=== PATIENT | male | born 1960 | race African-American/Black ===

== ENCOUNTER 2017-02-12 09:15 | Inpatient (IN) | payer OTHER ==
[2017-02-12 09:38] VITALS: BMI 30.2
--- NOTE | 2017-02-12 11:48 | HP ---
COWS - Scale Resting Pulse: 0= [place] 80 or Below Sweatin= Chills/Flushing Restless Observation: 3= Extraneous Movement Pupil Size: 2= Moderately Dilated Bone or Joint Aches: 4=Acute Joint/Muscle Pain Runny Nose/ Eye Tearin= Nasal Congestion GI Upset > 30mins: 1= Stomach Cramp Tremor Observation: 1= Tremor [place], Not Seen Yawning Observation: 2= >3x During Session Anxiety or Irritability: 2=Irritable/Anxious Goose Flesh Skin: 0=Smooth Skin COWS Score: 17 CIWA Score - CIWA Score Nausea/Vomitin-No Nausea/No Vomiting Muscle Tremors: 4-Moderate,w/Arms Extend Anxiety: 4-Mod. Anxious/Guarded Agitation: 3 Paroxysmal Sweats: 1-Minimal Palms Moist Orientation: 0-Oriented Tacttile Disturbances: 3-Moderate Itch/Numb/Burn Auditory Disturbances: 0-None Visual Disturbances: 0-None Headache: 0-None Present CIWA-Ar Total Score: 15 Admission ROS S - HPI Chief Complaint: DETOX [place] FOR HEROIN AND ALCOHOL DEPENDENCE Allergies/Adverse Reactions: Allergies Allergy/AdvReac Type Severity Reaction Status Date / Time No Known Allergies Allergy Verified 02/12/17 10:28 History of Present Illness: 56 Y/O AA/MALE WITH A HX OF HEROIN AND ALCOHOL DEPENDENCE SEEKING DETOX [place] - Ebola screening Have you traveled outside of the country in the last 21 days: No Have you had contact with anyone from an Ebola affected area: No Have you been sick,other than usual withdrawal symptoms: No Do you have a fever: No - Review of Systems Constitutional: Chills, Night Sweats, Changes in sleep EENT: reports: Blurred Vision, Tearing, Nose Congestion Respiratory: reports: No Symptoms reported Cardiac: reports: Lightheadedness GI: reports: Constipated, Diarrhea, Nausea, Vomiting, Abdominal cramping : reports: Dysuria (SLOW URINE FLOW) Musculoskeletal: reports: Back Pain, Muscle Pain, Other Integumentary: reports: Other (CALLUSED FEET) Neuro: reports: Headache, Numbness, Tingling, Unsteady Gait, Dizziness Endocrine: reports: No Symptoms Reported Hematology: reports: No Symptoms Reported Psychiatric: reports: Orientated x3, Anxious, Depressed Other Systems: Reviewed and Negative Patient History - Patient Medical History Hx Anemia: No Hx Asthma: No Hx Chronic Obstructive Pulmonary Disease (COPD): No Hx Cancer: No Hx Cardiac Disorders: No Hx Congestive Heart Failure: No Hx Hypertension: No Hx Hypercholesterolemia: No Hx Pacemaker: No HX Cerebrovascular Accident: No Hx Seizures: No Hx Dementia: No Hx Diabetes: No Hx Gastrointestinal Disorders: Yes (acid reflux) Hx Liver Disease: No Hx Genitourinary Disorders: No Hx Sexually Transmitted Disorders: No Hx Renal Disease (ESRD): No Hx Thyroid Disease: No Hx Human Immunodeficiency Virus (HIV): No (negative) Hx Hepatitis C: Yes Hx Depression: Yes Hx Suicide Attempt: No Hx Bipolar Disorder: Yes Hx Schizophrenia: No - Patient Surgical History Past Surgical History: No Hx Neurologic Surgery: No Hx Cataract Extraction: No Hx Cardiac Surgery: No Hx Lung Surgery: No Hx Breast Surgery: No Hx Breast Biopsy: No Hx Abdominal Surgery: No Hx Appendectomy: No Hx Cholecystectomy: No Hx Genitourinary Surgery: No Hx Orthopedic Surgery: No Anesthesia Reaction: No - PPD History Previous Implant?: Yes (HX PPD+ WITH TX) Documented Results: Positive w/o proof Implanted On Prior [facility] Admission?: No PPD to be Administered?: No - Reproductive History Patient is a Female of Child Bearing Age (11 -55 yrs old): No (MALE) - Smoking Cessation Smoking history: Current every day smoker Have you smoked in the past 12 months: Yes Aproximately how many cigarettes per day: 20 Hx Chewing Tobacco Use: No Initiated information on smoking cessation: Yes 'Breaking Loose' booklet given: 02/12/17 - Substance & Tx. History Hx Alcohol Use: Yes (BEER/COGNAC) Hx Substance Use: Yes (HEROIN) Substance Use Type: Alcohol, Heroin Hx Substance Use Treatment: Yes - Substances Abused Heroin Route: Inhalation Frequency: Daily Amount used: 10 bags Age of first use: 19 Date of Last Use: 02/12/17 Alcohol-beer/cognac Route: Oral Frequency: 3-6 times per week Amount used: 2-6 pks./1 pt. Age of first use: 13 Date of Last Use: 02/12/17 Family Disease History - Family Disease History Family Disease History: Heart Disease: Father (MASSIVE STROKE-) Admission Physical Exam [facility] - Vital Signs Vital Signs: Vital Signs - 24 hr 02/12/17 09:34 Temperature 96.9 F L Pulse Rate 78 Respiratory 18 Rate Blood Pressure 150/90 - Physical General Appearance: Yes: Moderate Distress, Irritable, Anxious HEENTM: Yes: EOMI, Normocephalic, FRIEDA, Pharynx Normal Respiratory: Yes: Chest Non-Tender, Lungs Clear, Normal Breath Sounds, No Respiratory Distress Neck: Yes: No masses,lesions,Nodules, Supple, Trachea in good position Breast: Yes: Breast Exam Deferred Cardiology: Yes: Regular Rhythm, Regular Rate, S1, S2 Abdominal: Yes: Normal Bowel Sounds, Non Tender, Soft Genitourinary: Yes: Within Normal Limits Back: Yes: Within Normal Limits Extremities: Yes: Normal Range of Motion, Non-Tender Neurological: Yes: compensator worker II-XII NML intact, Fully Oriented, Alert, Motor Strength 5/5 Integumentary: Yes: Dry, Warm Lymphatic: Yes: Within Normal Limits - Diagnostic (1) Nicotine dependence Current Visit: Yes Status: Acute Qualifiers: Nicotine product type: cigarettes Substance use status: in withdrawal Qualified Code(s): F17.213 - Nicotine dependence, cigarettes, with withdrawal (2) Hepatitis C Current Visit: Yes Status: Chronic Qualifiers: Viral hepatitis chronicity: unspecified Hepatic coma status: without hepatic coma Qualified Code(s): B19.20 - Unspecified viral hepatitis C without hepatic coma (3) Opioid dependence with withdrawal Current Visit: Yes Status: Acute (4) Alcohol dependence with uncomplicated withdrawal Current Visit: Yes Status: Acute Cleared for Admission [facility] - Detox or Rehab [facility] Level of Care: Medically Managed Detox Regimen/Protocol: Methadone/Librium [facility] Breath Alcohol Content Breath Alcohol Content: 0.025 Urine Drug Screen - Results Urine Drug Screen Results: THC-Marijuana, OPI-Opiates
[2017-02-12] MEDS ORDERED: diphenhydrAMINE HCL 50 MG CAPSULE PO PRN (12:11)
[2017-02-12] MEDS ORDERED: MENTHOL/PHENOL 1 EACH UD MM PRN (12:11)
[2017-02-12] MEDS ORDERED: ACETAMINOPHEN 325 MG TABLET (FP) PO PRN (12:11)
[2017-02-12] MEDS ORDERED: NICOTINE POLACRILEX 4 MG GUM BUC PRN (12:11)
[2017-02-12] MEDS ORDERED: hydrOXYzine PAMOATE 25 MG CAPSULE (FP) PO PRN (12:11)
[2017-02-12] MEDS ORDERED: LOPERAMIDE HCL 2 MG CAPSULE PO PRN (12:11)
[2017-02-12] MEDS ORDERED: P-EPHED 60MG/TRIPROLIDI 2.5MG TABLET PO PRN (12:11)
[2017-02-12] MEDS ORDERED: diazePAM 5 MG TABLET PO PRN (12:11)
[2017-02-12] MEDS ORDERED: MAGNESIUM HYDROX 2400MG/30ML ORAL SUSPENSION 30 ML CUP PO PRN (12:11)
[2017-02-12] MEDS ORDERED: guaiFENesin/D-METHORPHAN HB 10 ML UNIT-DOSE CUPS PO PRN (12:11)
[2017-02-12] MEDS ORDERED: IBUPROFEN 400 MG TABLET (FP) PO PRN (12:11)
[2017-02-12] MEDS ORDERED: MAGNESIUM CITRATE 300 ML BOTTLE PO PRN (12:11)
[2017-02-12] MEDS ORDERED: MAG HYDROX/AL HYDROX/SIMETH 30 ML UNIT-DOSE CUP PO PRN (12:11)
[2017-02-12] MEDS ORDERED: diazePAM 5 MG TABLET PO ONE (12:40)
[2017-02-12] MEDS ORDERED: METHADONE HCL 10 MG TABLET (FOR DETOX USE ONLY) PO ONE ×2 (12:41→23:00)
[2017-02-12] MEDS: NICOTINE 21 MG/24 HOURS TOPICAL PATCH TD SCH (12:45)
[2017-02-12] MEDS: diazePAM 5 MG TABLET PO SCH ×2 (14:30→22:18)
--- NOTE | 2017-02-12 15:57 | EKG ---
Test Reason : Blood Pressure : / mmHG Vent. Rate : 067 BPM Atrial Rate : 067 BPM P-R Int : 172 ms QRS Dur : 088 ms QT Int : 412 ms P-R-T Axes : 066 031 010 degrees QTc Int : 435 ms NORMAL SINUS RHYTHM POSSIBLE LEFT ATRIAL ENLARGEMENT BORDERLINE ECG NO PREVIOUS ECGS AVAILABLE Confirmed by LIA MATTHEWS, ROSAURA ([id number]) on 02/12/2017 3:57:07 PM Referred By: John Conte Confirmed By:ROSAURA FITZGERALD MD
[2017-02-12 18:39] LABS: URINE APPEARANCE CLEAR; URINE BILIRUBIN NEGATIVE (NEGATIVE); URINE BLOOD NEGATIVE (NEGATIVE); URINE COLOR YELLOW; URINE GLUCOSE (UA) NEGATIVE (NEGATIVE); URINE KETONE NEGATIVE (NEGATIVE); URINE LEUK ESTERASE NEGATIVE (NEGATIVE); URINE NITRITE NEGATIVE (NEGATIVE); URINE PROTEIN NEGATIVE (NEGATIVE); URINE UROBILINOGEN NEGATIVE E.U./dl (0.2-1.0)
[2017-02-12] MEDS ORDERED: THIAMINE HCL 100 MG TABLET (FP) PO SCH (22:00)
[2017-02-13] MEDS: diazePAM 5 MG TABLET PO SCH ×2 (05:54→14:05)
[2017-02-13 09:59] LABS: MCH 28.2 pg (25.7-33.7); MCHC 31.7 g/dl (32.0-35.9); MEAN CELL VOLUME 88.8 fl (80-96); MEAN PLT VOLUME 9.3 fl (7.5-11.1); PLATELET COUNT 202 K/MM3 (134-434); WHITE BLOOD COUNT 5.7 K/mm3 (4.0-10.0)
[2017-02-13] MEDS ORDERED: PRENATAL VITAMINS W/ FOLIC ACID TABLET (FP) PO SCH (10:00)
[2017-02-13] MEDS ORDERED: METHADONE HCL 10 MG TABLET (FOR DETOX USE ONLY) PO SCH (10:00)
[2017-02-13 10:23] LABS: ALBUMIN 3.8 g/dl (3.4-5.0); CALCIUM 9.1 mg/dL (8.5-10.1); CREATININE 1.3 mg/dL (0.7-1.3)
[2017-02-13 10:25] LABS: BILIRUBIN,TOTAL 0.3 mg/dL (0.2-1.0); TOT PROT 7.6 g/dl (6.4-8.2)
[2017-02-13] MEDS: NICOTINE 21 MG/24 HOURS TOPICAL PATCH TD SCH (10:34)
--- NOTE | 2017-02-13 12:51 | CONSULT ---
[facility] Psychiatric Consult - Data Date of interview: 02/13/17 Admission source: [facility] Identifying data: Readmission to [facility] for this 55 y/o AA male seeking detoxification treatment on ,for heroin and alcohol dependence.Patient is single,a father of one,domiciled and evasive about his means of support. Substance Abuse History: - Smoking Cessation. Smoking history: Current every day smoker. Have you smoked in the past 12 months: Yes. Aproximately how many cigarettes per day: 20. Hx Chewing Tobacco Use: No. Initiated information on smoking cessation: Yes. 'Breaking Loose' booklet given: 02/12/17. - Substance & Tx. History. Hx Alcohol Use: Yes (BEER/COGNAC). Hx Substance Use: Yes ( HEROIN). Substance Use Type: Alcohol, Heroin. Hx Substance Use Treatment: Yes. - Substances Abused. Heroin. Route: Inhalation. Frequency: Daily. Amount used: 10 bags. Age of first use: 19. Date of Last Use: 02/12/17. Alcohol-beer/cognac. Route: Oral. Frequency: 3-6 times per week. Amount used : 2-6 pks./1 pt. Age of first use: 13. Date of Last Use: 02/12/17. Confirmed by patient. Medical History: Hepatitis C. Psychiatric History: Remote history of psychiatric hospitalizations for behavioral disturbances (childhood and adolescence).Used to be on thorazine.Diagnosed,years ago,with Bipolar Disorder (self-report).Lost to follow up since adolescence.No OPD care providers.Never resumed psychotropic medications.Mr Hurd denies history of suicide attempts. Physical/Sexual Abuse/Trauma History: Patient denies. Additional Comment: Urine Drug Screen Results: THC-Marijuana, OPI-Opiates.Noted. Mental Status Exam - Mental Status Exam Alert and Oriented to: Time, Place, Person Cognitive Function: Good Patient Appearance: Well Groomed Mood: Hopeful, Euthymic Affect: Appropriate, Normal Range Patient Behavior: Appropriate, Cooperative Speech Pattern: Clear, Appropriate Voice Loudness: Normal Thought Process: Goal Oriented Hallucinations: Denies Suicidal Ideation: Denies Homicidal Ideation: Denies Insight/Judgement: Poor Sleep: Well Appetite: Good Muscle strength/Tone: Normal Gait/Station: Normal Psychiatric Findings - Problem List ([place] 1, 2,3) (1) Alcohol dependence with uncomplicated withdrawal Current Visit: Yes Status: Acute (2) Opioid dependence with withdrawal Current Visit: Yes Status: Acute (3) Nicotine dependence Current Visit: Yes Status: Acute Qualifiers: Nicotine product type: cigarettes Substance use status: in withdrawal Qualified Code(s): F17.213 - Nicotine dependence, cigarettes, with withdrawal (4) Cocaine dependence Current Visit: Yes Status: Acute (5) Drug-induced mood disorder Current Visit: Yes Status: Acute (6) Hepatitis C Current Visit: Yes Status: Chronic Qualifiers: Viral hepatitis chronicity: unspecified Hepatic coma status: without hepatic coma Qualified Code(s): B19.20 - Unspecified viral hepatitis C without hepatic coma - Initial Treatment Plan Initial Treatment Plan: Psychoeducation.Detoxification.Observation.
[2017-02-13 13:11] VITALS: BP 132/74; PULSE 64; TEMP 98.1
[2017-02-13 14:57] LABS: HIV 1 & 2 AB NEGATIVE; HIV 1 AGp24 NEGATIVE
[2017-02-13 15:25] LABS: URINE APPEARANCE CLEAR; URINE BILIRUBIN NEGATIVE (NEGATIVE); URINE BLOOD NEGATIVE (NEGATIVE); URINE COLOR LTYELLOW; URINE GLUCOSE (UA) NEGATIVE (NEGATIVE); URINE KETONE NEGATIVE (NEGATIVE); URINE NITRITE NEGATIVE (NEGATIVE); URINE PROTEIN NEGATIVE (NEGATIVE); URINE UROBILINOGEN NEGATIVE E.U./dl (0.2-1.0)
[2017-02-13 15:30] LABS: URINE LEUK ESTERASE TRACE (NEGATIVE)
[2017-02-13 16:18] LABS: URINE MUCUS RARE; URINE RBC 1 /hpf (0-3); URINE WBC 5 /hpf (3-5)
--- NOTE | 2017-02-13 16:59 | PN ---
[facility] CIWA - CIWA Score Nausea/Vomitin-Mild Nausea/No Vomiting Muscle Tremors: 4-Moderate,w/Arms Extend Anxiety: 4-Mod. Anxious/Guarded Agitation: 3 Paroxysmal Sweats: 3 Orientation: 0-Oriented Tacttile Disturbances: 0-None Auditory Disturbances: 0-None Visual Disturbances: 0-None Headache: 0-None Present CIWA-Ar Total Score: 15 S COWS - Scale Resting Pulse: 0= [place] 80 or Below Sweatin=Flushed/Facial Moisture Restless Observation: 1= Difficult to Sit Still Pupil Size: 0= Normal to Room Light Bone or Joint Aches: 1= Mild Discomfort Runny Nose/ Eye Tearin= Runny Nose/Eyes GI Upset > 30mins: 2= Nausea/Diarrhea Tremor Observation of Outstretched Hands: 2= Slight Tremor Visible Yawning Observation: 1= 1-2x During Session Anxiety or Irritability: 2=Irritable/Anxious Goose Flesh Skin: 0=Smooth Skin COWS Score: 13 [facility] Progress Note (SOAP) Subjective: Anxiety,tremors,sweating,interrupted sleep,muscle aches/spasm,restless,nausea. Objective: 02/13/17 16:58 Vital Signs - 8 hr 02/13/17 02/13/17 09:23 13:11 Temperature 97.3 F L 98.1 F Pulse Rate 57 L 64 Respiratory 18 18 Rate Blood Pressure 128/82 132/74 Laboratory Tests 02/12/17 02/13/17 02/13/17 14:20 06:20 06:20 WBC 5.7 RBC 4.63 Hgb 13.1 Hct 41.1 MCV 88.8 MCHC 31.7 L RDW 14.0 Plt Count 202 MPV 9.3 Sodium 140 Potassium 4.3 Chloride 106 Carbon Dioxide 24 Anion Gap 10 BUN 21 H D Creatinine 1.3 Creat Clearance w eGFR 56.70 Random Glucose 95 Calcium 9.1 Total Bilirubin 0.3 D AST 24 ALT 29 D Alkaline Phosphatase 48 Total Protein 7.6 Albumin 3.8 Urine Color Yellow Urine Appearance Clear Urine pH 5.0 Ur Specific [place] 1.021 Urine Protein Negative Urine Glucose (UA) Negative Urine Ketones Negative Urine Blood Negative Urine Nitrite Negative Urine Bilirubin Negative Urine Urobilinogen Negative Ur Leukocyte Esterase Negative Urine RBC Urine WBC Ur Epithelial Cells Urine Mucus RPR Titer HIV 1&2 Antibody Screen HIV P24 Antigen 02/13/17 02/13/17 02/13/17 06:20 10:30 12:33 WBC RBC Hgb Hct MCV MCHC RDW Plt Count MPV Sodium Potassium Chloride Carbon Dioxide Anion Gap BUN Creatinine Creat Clearance w eGFR Random Glucose Calcium Total Bilirubin AST ALT Alkaline Phosphatase Total Protein Albumin Urine Color Ltyellow Urine Appearance Clear Urine pH 5.0 Ur Specific [place] 1.016 Urine Protein Negative Urine Glucose (UA) Negative Urine Ketones Negative Urine Blood Negative Urine Nitrite Negative Urine Bilirubin Negative Urine Urobilinogen Negative Ur Leukocyte Esterase Trace H Urine RBC 1 Urine WBC 5 Ur Epithelial Cells Rare Urine Mucus Rare RPR Titer Nonreactive HIV 1&2 Antibody Screen Negative HIV P24 Antigen Negative labs noted Assessment: 02/13/17 16:59 Withdrawal sx. Plan: Continue detox
--- NOTE | 2017-02-13 19:10 | PN ---
[facility] Progress Note Note: PATIENT IS THREATENING THE NURSING STAFF,AND ATTEMPT PHYSICALLY,SECURITIES CALLED TO UNIT, ADMINISTRATIVE DISCHARGE,ESCORTED OFF UNIT BY SECURITIES,OPERATIONS STAFF SPECIALIST SECURITY ON CALLED PRESENT IN THE UNIT
--- NOTE | 2017-02-13 19:17 | DS ---
[facility] Detox Discharge Summary Admission Date: 02/12/17 Discharge Date: 02/13/17 - History Present History: Alcohol Dependence, Opioid Dependence Additional Comments: PATIENT IS THREATENING NURSING STAFF,ATTEMPTED PHYSICALLY,SECURITIES CALLED TO UNIT,ADMINISTRATIVE DISCHARGE, ESCORTED OFF UNIT BY SECURITIES,CALCULATION REVIEWER ON DUTY PRESENT IN THE UNIT Pertinent Past History: HEPATITIS C - Physical Exam Results Vital Signs: Vital Signs Temperature 98.1 F 02/13/17 13:11 Pulse Rate 64 02/13/17 13:11 Respiratory Rate 18 02/13/17 13:11 Blood Pressure 132/74 02/13/17 13:11 O2 Sat by Pulse Oximetry (%) Pertinent Admission Physical Exam Findings: WITHDRAWAL SYMPTOM - Medication Discharge Medications: Ambulatory Orders NK [No Known Home Medication] 12/26/15 - Diagnosis (1) Alcohol dependence with uncomplicated withdrawal Status: Acute (2) Drug-induced mood disorder Status: Acute (3) Nicotine dependence Status: Acute Qualifiers: Nicotine product type: cigarettes Substance use status: in withdrawal Qualified Code(s): F17.213 - Nicotine dependence, cigarettes, with withdrawal (4) Opioid dependence with withdrawal Status: Acute (5) Hepatitis C Status: Chronic Qualifiers: Viral hepatitis chronicity: unspecified Hepatic coma status: without hepatic coma Qualified Code(s): B19.20 - Unspecified viral hepatitis C without hepatic coma - AMA Did Patient Leave Against Medical Advice: No
[2017-02-14] MEDS ORDERED: diazePAM 5 MG TABLET PO SCH (10:00)
[2017-02-14] MEDS ORDERED: METHADONE HCL 5 MG TABLET (FOR DETOX USE ONLY) PO SCH (10:00)
[2017-02-16] MEDS ORDERED: METHADONE HCL 10 MG TABLET (FOR DETOX USE ONLY) PO SCH (10:00)
[2017-02-16] MEDS ORDERED: diazePAM 5 MG TABLET PO SCH (10:00)
[2017-02-17] MEDS ORDERED: METHADONE HCL 5 MG TABLET (FOR DETOX USE ONLY) PO SCH (06:00)
== END 2017-02-13 18:57 | disposition home or self-care (01) | DRG 773 ==
LOC: YASAS 09:15 → Y3N 11:18
PROVIDERS: ADMIT Internal Medicine; ATTEND Internal Medicine
PROC: HZ2ZZZZ Detoxification Services for Substance Abuse Treatment (ICD-10-PCS; principal; 2017-02-12)
DX: F11.23 Opioid dependence with withdrawal (principal); F10.230 Alcohol dependence with withdrawal, uncomplicated; F17.210 Nicotine dependence, cigarettes, uncomplicated; F19.24 Other psychoactive substance dependence with psychoactive substance-induced mood disorder; B19.20 Unspecified viral hepatitis C without hepatic coma; K21.9 Gastro-esophageal reflux disease without esophagitis; F91.8 Other conduct disorders
CPT/HCPCS: 36415; 71020-TC; 80053; 81003; 81015; 85027; 86593; 87389; 87522; 93005; 93010

== ENCOUNTER 2018-12-28 08:18 | Inpatient (IN) | payer OTHER ==
[2018-12-28 09:01] VITALS: BMI 30.2
--- NOTE | 2018-12-28 09:16 | HP ---
CIWA Score Nausea/Vomitin-No Nausea/No Vomiting Muscle Tremors: 4-Moderate,w/Arms Extend Anxiety: 1-Mildly Anxious Agitation: 2 Paroxysmal Sweats: 3 Orientation: 1-Uncertain about Date Tacttile Disturbances: 0-None Auditory Disturbances: 0-None Visual Disturbances: 0-None Headache: 1-Very Mild CIWA-Ar Total Score: 12 - Admission Criteria [facility] Guidelines: Admission for Medically Managed Detox: Requires at least one of the followin. CIWA greater than 12 2. Seizures within the past 24 hours 3. Delirium tremens within the past 24 hours 4. Hallucinations within the past 24 hours 5. Acute intervention needed for co occurring medical disorder 6. Acute intervention needed for co occurring psychiatric disorder 7. Severe withdrawal that cannot be handled at a lower level of care (continued vomiting, continued diarrhea, abnormal vital signs) requiring intravenous medication and/or fluids 8. Patient presents the following: CIWA greater than 12 Admission Criteria Met: Admission criteria met Admission ROS S - HPI Chief Complaint: " I am here to get better" Allergies/Adverse Reactions: Allergies Allergy/AdvReac Type Severity Reaction Status Date / Time No Known Allergies Allergy Verified 02/12/17 10:28 History of Present Illness: 58 yr old male with a long hx of alcohol addiction presents for detox. Pt is known to this facility, with a last visit date of January last yr. Pt is in a methadone program - presents his card for [facility] - where he states he was last medicated (80mg)yesterday. Pt states he wants to "come down" on the methadone dose but was educated that he has to return to his program for the step down. Pt verbalized understanding that he will be kept on his 80mg maintenance dose upon verification. Pt denies any medical nor psychiatric hx, and denies being on any medication ( other than the Methadone). Hx of hepatitis C, Bipolar, Depression from history Denies withdrawal seizures nor black outs Denies Hx of SI/HI, and denies same at this visit. Exam Limitations: No Limitations - Ebola screening Have you traveled outside of the country in the last 21 days: No (N) Have you had contact with anyone from an Ebola affected area: No Have you been sick,other than usual withdrawal symptoms: No Do you have a fever: No - Review of Systems Constitutional: Loss of Appetite, Night Sweats, Changes in sleep, Unintentional Wgt. Loss EENT: reports: No Symptoms Reported Respiratory: reports: No Symptoms reported Cardiac: reports: No Symptoms Reported GI: reports: Poor Appetite : reports: Frequency Musculoskeletal: reports: Other (bilateral leg pain, uses a cane to ambulate, which he states "i gave myself to use") Integumentary: reports: No Symptoms Reported Neuro: reports: Unsteady Gait (uses a cane) Endocrine: reports: Intolerance to Cold, Unexplained Weight Loss Hematology: reports: No Symptoms Reported Psychiatric: reports: No Sypmtoms Reported, Orientated x3 Other Systems: Reviewed and Negative Patient History - Patient Medical History Hx Anemia: No Hx Asthma: No Hx Chronic Obstructive Pulmonary Disease (COPD): No Hx Cancer: No Hx Cardiac Disorders: No Hx Congestive Heart Failure: No Hx Hypertension: No Hx Hypercholesterolemia: No Hx Pacemaker: No HX Cerebrovascular Accident: No Hx Seizures: No Hx Dementia: No Hx Diabetes: No Hx Gastrointestinal Disorders: Yes (acid reflux, not on med) Hx Liver Disease: No Hx Genitourinary Disorders: No Hx Sexually Transmitted Disorders: No Hx Renal Disease (ESRD): No Hx Thyroid Disease: No Hx Human Immunodeficiency Virus (HIV): No (negative, declines testing) Hx Hepatitis C: Yes (- states he might have been treated but don't sound certain ) Hx Depression: Yes ( not on meds) Hx Suicide Attempt: No (denies current SI) Hx Bipolar Disorder: Yes Hx Schizophrenia: No - Patient Surgical History Past Surgical History: No Hx Neurologic Surgery: No Hx Cataract Extraction: No Hx Cardiac Surgery: No Hx Lung Surgery: No Hx Breast Surgery: No Hx Breast Biopsy: No Hx Abdominal Surgery: No Hx Appendectomy: No Hx Cholecystectomy: No Hx Genitourinary Surgery: No Hx Section: No Hx Orthopedic Surgery: No Anesthesia Reaction: No - PPD History Previous Implant?: Yes Documented Results: Positive w/o proof Implanted On Prior R Admission?: No PPD to be Administered?: No - Reproductive History Patient is a Female of Child Bearing Age (11 -55 yrs old): No - Smoking Cessation Smoking history: Current every day smoker Have you smoked in the past 12 months: Yes Aproximately how many cigarettes per day: 40 Hx Chewing Tobacco Use: No Initiated information on smoking cessation: Yes 'Breaking Loose' booklet given: 12/28/18 - Substance & Tx. History Hx Alcohol Use: Yes Hx Substance Use: Yes Substance Use Type: Alcohol, Heroin Hx Substance Use Treatment: Yes - Substances Abused Alcohol Route: Oral Frequency: 3-6 times per week Amount used: 2 (24 oz) 6 packs of beerbruce Age of first use: 10 Date of Last Use: 12/27/18 Marijuana/Hashish Route: Inhalation Frequency: Daily Amount used: 2 blunts Age of first use: 10 Date of Last Use: 12/28/18 Family Disease History - Family Disease History Family Disease History: Heart Disease: Father (MASSIVE STROKE-) Admission Physical Exam [facility] - Vital Signs Vital Signs: Vital Signs - 24 hr 12/28/18 08:59 Temperature 99.4 F Pulse Rate 87 Respiratory 20 Rate Blood Pressure 150/84 - Physical General Appearance: Yes: Mild Distress, Anxious HEENTM: Yes: Within Normal Limits Respiratory: Yes: Lungs Clear, No Respiratory Distress, No Accessory Muscle Use Neck: Yes: Within Normal Limits, Trachea in good position Breast: Yes: Breast Exam Deferred Cardiology: Yes: Regular Rate Abdominal: Yes: Normal Bowel Sounds, Soft, Distended Genitourinary: Yes: Frequency, Dribblimg Back: Yes: Normal Inspection Musculoskeletal: Yes: full range of Motion, Other (ambulates with a cane) Extremities: Yes: Normal Capillary Refill, Normal Range of Motion, Other ( Swelling and pain to LLE, ambulatesd with a cane) Neurological: Yes: Fully Oriented, Alert Integumentary: Yes: Within Normal Limits - Diagnostic (1) Alcohol dependence with uncomplicated withdrawal Current Visit: No Status: Acute (2) Opioid dependence on agonist therapy Current Visit: Yes Status: Acute (3) Nicotine dependence Current Visit: No Status: Acute Qualifiers: Nicotine product type: cigarettes Substance use status: in withdrawal Qualified Code(s): F17.213 - Nicotine dependence, cigarettes, with withdrawal (4) History of hepatitis C Current Visit: Yes Status: Acute (5) Cannabis dependence Current Visit: No Status: Chronic Cleared for Admission [facility] - Detox or Rehab [facility] Level of Care: Medically Managed Detox Regimen/Protocol: Librium [facility] Breath Alcohol Content Breath Alcohol Content: 0 Urine Drug Screen - Results Drug Screen Negative: No Urine Drug Screen Results: THC-Marijuana, MTD-Methadone Inpatient Rehab Admission - Rehab Decision to Admit Inpatient rehab admission?: No
[2018-12-28] MEDS ORDERED: MAGNESIUM CITRATE 300 ML BOTTLE PO PRN (09:49)
[2018-12-28] MEDS ORDERED: NICOTINE POLACRILEX 4 MG GUM BC PRN (09:49)
[2018-12-28] MEDS ORDERED: P-EPHED 60MG/TRIPROLIDI 2.5MG TABLET PO PRN (09:49)
[2018-12-28] MEDS ORDERED: MAG HYDROX/AL HYDROX/SIMETH 30 ML UNIT-DOSE CUP PO PRN (09:49)
[2018-12-28] MEDS ORDERED: MENTHOL/PHENOL 1 EACH UD MM PRN (09:49)
[2018-12-28] MEDS ORDERED: ACETAMINOPHEN 325 MG TABLET (FP) PO PRN (09:49)
[2018-12-28] MEDS ORDERED: LOPERAMIDE HCL 2 MG CAPSULE PO PRN (09:49)
[2018-12-28] MEDS ORDERED: chlordiazePOXIDE HCL 25 MG CAPSULE PO PRN (09:49)
[2018-12-28] MEDS ORDERED: MAGNESIUM HYDROX 2400MG/30ML ORAL SUSPENSION 30 ML CUP PO PRN (09:49)
[2018-12-28] MEDS ORDERED: IBUPROFEN 400 MG TABLET (FP) PO PRN (09:49)
[2018-12-28] MEDS ORDERED: guaiFENesin/D-METHORPHAN HB 10 ML UNIT-DOSE CUPS PO PRN (09:49)
[2018-12-28] MEDS: chlordiazePOXIDE HCL 25 MG CAPSULE PO SCH ×3 (12:31→22:07)
[2018-12-28] MEDS: PRENATAL VITAMINS W/ FOLIC ACID TABLET (FP) PO SCH (12:31)
[2018-12-28] MEDS: NICOTINE 21 MG/24 HOURS TOPICAL PATCH TD SCH (12:33)
[2018-12-28] MEDS ORDERED: METHADONE HCL 10 MG TABLET PO ONE (14:54)
--- NOTE | 2018-12-28 14:57 | PN ---
S Progress Note Note: RN unable to verify pt's dose at the [facility],20mg x once only ordered. Attempts will be made again tomorrow to oon5deg pt's dose.
[2018-12-28] MEDS: THIAMINE HCL 100 MG TABLET (FP) PO SCH (22:07)
[2018-12-28] MEDS: hydrOXYzine PAMOATE 25 MG CAPSULE (FP) PO PRN (22:08)
[2018-12-29] MEDS: chlordiazePOXIDE HCL 25 MG CAPSULE PO SCH ×4 (05:46→22:26)
[2018-12-29] MEDS: METHADONE HCL 40 MG DISPERSABLE TABLET PO SCH (08:58)
--- NOTE | 2018-12-29 09:40 | PN ---
S CIWA - CIWA Score Nausea/Vomitin-Mild Nausea/No Vomiting Muscle Tremors: 3 Anxiety: 2 Agitation: 2 Paroxysmal Sweats: 1-Minimal Palms Moist Orientation: 1-Uncertain about Date Tacttile Disturbances: 0-None Auditory Disturbances: 0-None Visual Disturbances: 0-None Headache: 2-Mild CIWA-Ar Total Score: 12 [facility] Progress Note (SOAP) Subjective: methadone verified may give as prescribed tremor sweating anxiety otherwise doing ok social with peers in day room Objective: 12/29/18 09:40 Vital Signs Temperature 98.7 F 12/29/18 09:20 Pulse Rate 60 12/29/18 09:20 Respiratory Rate 18 12/29/18 09:20 Blood Pressure 125/70 12/29/18 09:20 O2 Sat by Pulse Oximetry (%) 12/29/18 09:40 lab pending Assessment: 12/29/18 09:41 withdrawal sx Plan: continue detox
[2018-12-29 09:56] LABS: HEMATOCRIT 35.4 % (35.4-49); HEMOGLOBIN 11.5 GM/dL (11.7-16.9); MCH 28.4 pg (25.7-33.7); MCHC 32.4 g/dl (32.0-35.9); MEAN CELL VOLUME 87.5 fl (80-96); MEAN PLT VOLUME 8.6 fl (7.5-11.1); PLATELET COUNT 179 K/MM3 (134-434); RBC 4.04 M/mm3 (4.00-5.60); WHITE BLOOD COUNT 4.5 K/mm3 (4.0-10.0)
[2018-12-29 10:19] LABS: ALK PHOS 48 U/L (45-117); ANION GAP 6 MMOL/L (8-16); BILIRUBIN,TOTAL 0.4 mg/dL (0.2-1); BLOOD UREA NITROGEN 16 mg/dL (7-18); CALCIUM 8.7 mg/dL (8.5-10.1); CHLORIDE 108 mmol/L (98-107); CO2 28 mmol/L (21-32); CREATININE 0.9 mg/dL (0.55-1.3); GLUCOSE,RANDOM 82 mg/dL (74-106); POTASSIUM 3.9 mmol/L (3.5-5.1); SGOT/AST 17 U/L (15-37); SGPT/ALT 19 U/L (13-61); SODIUM 142 mmol/L (136-145); TOT PROT 6.2 g/dl (6.4-8.2)
[2018-12-29] MEDS: NICOTINE 21 MG/24 HOURS TOPICAL PATCH TD SCH (10:22)
[2018-12-29] MEDS: PRENATAL VITAMINS W/ FOLIC ACID TABLET (FP) PO SCH (10:22)
[2018-12-29] MEDS: THIAMINE HCL 100 MG TABLET (FP) PO SCH (22:25)
[2018-12-29] MEDS: MELATONIN 5 MG TABLETS PO PRN (22:33)
[2018-12-30] MEDS: chlordiazePOXIDE HCL 25 MG CAPSULE PO SCH (05:19)
[2018-12-30] MEDS: METHADONE HCL 40 MG DISPERSABLE TABLET PO SCH (05:20)
--- NOTE | 2018-12-30 10:09 | PN ---
[facility] CIWA - CIWA Score Nausea/Vomitin-No Nausea/No Vomiting Muscle Tremors: 3 Anxiety: 1-Mildly Anxious Agitation: 2 Paroxysmal Sweats: 1-Minimal Palms Moist Orientation: 1-Uncertain about Date Tacttile Disturbances: 0-None Auditory Disturbances: 0-None Visual Disturbances: 0-None Headache: 2-Mild CIWA-Ar Total Score: 10 S Progress Note (SOAP) Subjective: tremor sweating anxiety reported ambulate with cane x 1 years due to both ankles swell x 3 years with neuropathy Objective: 12/30/18 10:06 Vital Signs Temperature 100.4 F H 12/30/18 09:19 Pulse Rate 70 12/30/18 09:19 Respiratory Rate 20 12/30/18 09:19 Blood Pressure 121/81 12/30/18 09:19 O2 Sat by Pulse Oximetry (%) Laboratory Last Values WBC 4.5 K/mm3 (4.0-10.0) 12/29/18 07:50 RBC 4.04 M/mm3 (4.00-5.60) 12/29/18 07:50 Hgb 11.5 GM/dL (11.7-16.9) L 12/29/18 07:50 Hct 35.4 % (35.4-49) 12/29/18 07:50 MCV 87.5 fl (80-96) 12/29/18 07:50 MCH 28.4 pg (25.7-33.7) 12/29/18 07:50 MCHC 32.4 g/dl (32.0-35.9) 12/29/18 07:50 RDW 15.0 % (11.9-15.9) 12/29/18 07:50 Plt Count 179 K/MM3 (134-434) 12/29/18 07:50 MPV 8.6 fl (7.5-11.1) 12/29/18 07:50 Sodium 142 mmol/L (136-145) 12/29/18 07:50 Potassium 3.9 mmol/L (3.5-5.1) 12/29/18 07:50 Chloride 108 mmol/L (98-107) H 12/29/18 07:50 Carbon Dioxide 28 mmol/L (21-32) 12/29/18 07:50 Anion Gap 6 MMOL/L (8-16) L 12/29/18 07:50 BUN 16 mg/dL (7-18) 12/29/18 07:50 Creatinine 0.9 mg/dL (0.55-1.3) 12/29/18 07:50 Creat Clearance w eGFR > 60 (>60) 12/29/18 07:50 Random Glucose 82 mg/dL (74-106) 12/29/18 07:50 Calcium 8.7 mg/dL (8.5-10.1) 12/29/18 07:50 Total Bilirubin 0.4 mg/dL (0.2-1) 12/29/18 07:50 AST 17 U/L (15-37) 12/29/18 07:50 ALT 19 U/L (13-61) 12/29/18 07:50 Alkaline Phosphatase 48 U/L (45-117) 12/29/18 07:50 Total Protein 6.2 g/dl (6.4-8.2) L 12/29/18 07:50 Albumin 3.0 g/dl (3.4-5.0) L 12/29/18 07:50 RPR Titer Nonreactive (NONREACTIVE) 12/29/18 07:50 lab noted Assessment: 12/30/18 10:06 withdrawal sx neuropathy Plan: continue detox ambulate with cane
[2018-12-30] MEDS: chlordiazePOXIDE 5 MG CAPSULE PO SCH ×3 (10:26→22:21)
[2018-12-30] MEDS: NICOTINE 21 MG/24 HOURS TOPICAL PATCH TD SCH (10:26)
[2018-12-30] MEDS: PRENATAL VITAMINS W/ FOLIC ACID TABLET (FP) PO SCH (10:26)
[2018-12-30] MEDS: THIAMINE HCL 100 MG TABLET (FP) PO SCH (22:21)
[2018-12-30] MEDS: MELATONIN 5 MG TABLETS PO PRN (22:21)
[2018-12-31] MEDS: hydrOXYzine PAMOATE 25 MG CAPSULE (FP) PO PRN (02:18)
[2018-12-31] MEDS: chlordiazePOXIDE 5 MG CAPSULE PO SCH (05:20)
[2018-12-31] MEDS: METHADONE HCL 40 MG DISPERSABLE TABLET PO SCH (05:20)
[2018-12-31] MEDS: PRENATAL VITAMINS W/ FOLIC ACID TABLET (FP) PO SCH (10:31)
[2018-12-31] MEDS: chlordiazePOXIDE HCL 10 MG CAPSULE PO SCH ×3 (10:32→22:08)
[2018-12-31] MEDS: NICOTINE 21 MG/24 HOURS TOPICAL PATCH TD SCH (10:33)
--- NOTE | 2018-12-31 16:27 | PN ---
[facility] Progress Note (SOAP) Subjective: Body Aches, Sweating. Objective: PATIENT A & O X 3. IN NO ACUTE DISTRESS. 12/31/18 16:26 Vital Signs Temperature 98.4 F 12/31/18 09:51 Pulse Rate 60 12/31/18 09:51 Respiratory Rate 20 12/31/18 09:51 Blood Pressure 117/70 12/31/18 09:51 O2 Sat by Pulse Oximetry (%) Laboratory Tests 12/29/18 12/29/18 12/29/18 07:50 07:50 07:50 WBC 4.5 RBC 4.04 Hgb 11.5 L Hct 35.4 MCV 87.5 MCH 28.4 MCHC 32.4 RDW 15.0 Plt Count 179 MPV 8.6 Sodium 142 Potassium 3.9 Chloride 108 H Carbon Dioxide 28 Anion Gap 6 L BUN 16 Creatinine 0.9 Creat Clearance w eGFR > 60 Random Glucose 82 Calcium 8.7 Total Bilirubin 0.4 AST 17 ALT 19 Alkaline Phosphatase 48 Total Protein 6.2 L Albumin 3.0 L RPR Titer Nonreactive LABS NOTED. Assessment: 12/31/18 16:26 WITHDRAWAL SYMPTOMS. Plan: CONTINUED DETOX. INCREASE DAILY PO FLUID INTAKE. TOPICAL RY-[place] FOR LOWER BACK PAIN. PATIENT SCHEDULED FOR D/C TOMORROW.
[2018-12-31] MEDS: THIAMINE HCL 100 MG TABLET (FP) PO SCH (22:08)
[2018-12-31] MEDS: MELATONIN 5 MG TABLETS PO PRN (22:08)
[2019-01-01] MEDS: METHYL SALICYLATE/MENTHOL OINT 30 GM TUBE TP SCH ×2 (00:03→10:05)
[2019-01-01] MEDS: chlordiazePOXIDE HCL 10 MG CAPSULE PO SCH (05:09)
[2019-01-01] MEDS: METHADONE HCL 40 MG DISPERSABLE TABLET PO SCH (05:09)
--- NOTE | 2019-01-01 09:40 | DS ---
[facility] Detox Discharge Summary Admission Date: 12/28/18 Discharge Date: 01/01/19 - History Present History: Alcohol Dependence Additional Comments: 58 years old male admitted on 12/28/18 for alcohol withdrawal stabilization completed detox regimen tolerate well aftercare [facility] Physical Exam Results Vital Signs: Vital Signs Temperature 99 F 01/01/19 09:30 Pulse Rate 67 01/01/19 09:30 Respiratory Rate 18 01/01/19 09:30 Blood Pressure 129/77 01/01/19 09:30 O2 Sat by Pulse Oximetry (%) Pertinent Admission Physical Exam Findings: alcohol withdrawal sx Laboratory Last Values WBC 4.5 K/mm3 (4.0-10.0) 12/29/18 07:50 RBC 4.04 M/mm3 (4.00-5.60) 12/29/18 07:50 Hgb 11.5 GM/dL (11.7-16.9) L 12/29/18 07:50 Hct 35.4 % (35.4-49) 12/29/18 07:50 MCV 87.5 fl (80-96) 12/29/18 07:50 MCH 28.4 pg (25.7-33.7) 12/29/18 07:50 MCHC 32.4 g/dl (32.0-35.9) 12/29/18 07:50 RDW 15.0 % (11.9-15.9) 12/29/18 07:50 Plt Count 179 K/MM3 (134-434) 12/29/18 07:50 MPV 8.6 fl (7.5-11.1) 12/29/18 07:50 Sodium 142 mmol/L (136-145) 12/29/18 07:50 Potassium 3.9 mmol/L (3.5-5.1) 12/29/18 07:50 Chloride 108 mmol/L (98-107) H 12/29/18 07:50 Carbon Dioxide 28 mmol/L (21-32) 12/29/18 07:50 Anion Gap 6 MMOL/L (8-16) L 12/29/18 07:50 BUN 16 mg/dL (7-18) 12/29/18 07:50 Creatinine 0.9 mg/dL (0.55-1.3) 12/29/18 07:50 Creat Clearance w eGFR > 60 (>60) 12/29/18 07:50 Random Glucose 82 mg/dL (74-106) 12/29/18 07:50 Calcium 8.7 mg/dL (8.5-10.1) 12/29/18 07:50 Total Bilirubin 0.4 mg/dL (0.2-1) 12/29/18 07:50 AST 17 U/L (15-37) 12/29/18 07:50 ALT 19 U/L (13-61) 12/29/18 07:50 Alkaline Phosphatase 48 U/L (45-117) 12/29/18 07:50 Total Protein 6.2 g/dl (6.4-8.2) L 12/29/18 07:50 Albumin 3.0 g/dl (3.4-5.0) L 12/29/18 07:50 RPR Titer Nonreactive (NONREACTIVE) 12/29/18 07:50 lab noted - Treatment Hospital Course: Detox Protocol Followed, Detoxed Safely, Responded well, Discharged Condition Good, Rehab Referral Accepted Patient has Accepted a Rehab Referral to: [facility] - Medication Discharge Medications: Ambulatory Orders Methadone [Dolophine -] 80 mg PO DAILY 12/28/18 - Diagnosis (1) Alcohol dependence with uncomplicated withdrawal Current Visit: Yes Status: Acute (2) Nicotine dependence Current Visit: Yes Status: Acute Qualifiers: Nicotine product type: cigarettes Substance use status: in withdrawal Qualified Code(s): F17.213 - Nicotine dependence, cigarettes, with withdrawal (3) Opioid dependence on agonist therapy Current Visit: Yes Status: Chronic (4) Drug-induced mood disorder Current Visit: Yes Status: Suspected (5) Hepatitis C Current Visit: Yes Status: Chronic Qualifiers: Viral hepatitis chronicity: chronic Hepatic coma status: without hepatic coma Qualified Code(s): B18.2 - Chronic viral hepatitis C - AMA Did Patient Leave Against Medical Advice: No
[2019-01-01] MEDS: PRENATAL VITAMINS W/ FOLIC ACID TABLET (FP) PO SCH (10:06)
[2019-01-01] MEDS: NICOTINE 21 MG/24 HOURS TOPICAL PATCH TD SCH (10:06)
[2019-01-01 13:39] VITALS: BP 128/71; PULSE 65; TEMP 97.8
== END 2019-01-01 15:35 | disposition home or self-care (01) | DRG 773 ==
LOC: YASAS 08:18 → Y3N 10:26
PROVIDERS: ADMIT Surgery; ATTEND Surgery
PROC: HZ2ZZZZ Detoxification Services for Substance Abuse Treatment (ICD-10-PCS; principal; 2018-12-28)
DX: F10.230 Alcohol dependence with withdrawal, uncomplicated (principal); F11.20 Opioid dependence, uncomplicated; F12.20 Cannabis dependence, uncomplicated; F17.213 Nicotine dependence, cigarettes, with withdrawal; F19.24 Other psychoactive substance dependence with psychoactive substance-induced mood disorder; B18.2 Chronic viral hepatitis C; G62.9 Polyneuropathy, unspecified; R76.11 Nonspecific reaction to tuberculin skin test without active tuberculosis
CPT/HCPCS: 36415; 71046-TC-FY; 80053; 85027; 86593

== ENCOUNTER 2019-01-02 12:01 | Inpatient (IN) | payer OTHER ==
--- NOTE | 2019-01-01 11:52 | HP ---
[facility] Rehab Assess/Revision - Admission History Admitted to Rehab from: [facility] Date of Admission to Rehab: 01/01/19 - Findings Detox History & Physical reviewed: Yes Concur with findings: Yes Comments/Additional Findings: transferred from detox to rehab admission as per protocol Inpatient Rehab Admission - Rehab Decision to Admit Inpatient rehab admission?: Yes - Initial Determination Are CD services needed?: Yes Free of communicable disease: Yes Not in need of hospitalization: Yes - Rehab Admission Criteria Previous failed treatment: Yes Poor recovery environment: Yes Comorbidities: Yes Lacks judgement: No Patient is meeting Inpatient Rehab admission criteria:: Yes
[~2019-01-02 12:01] MED LIST: ACETAMINOPHEN 325 MG TABLET (FP) PO PRN; IBUPROFEN 400 MG TABLET (FP) PO PRN; LOPERAMIDE HCL 2 MG CAPSULE PO PRN; MAG HYDROX/AL HYDROX/SIMETH 30 ML UNIT-DOSE CUP PO PRN; MAGNESIUM CITRATE 300 ML BOTTLE PO PRN; MAGNESIUM HYDROX 2400MG/30ML ORAL SUSPENSION 30 ML CUP PO PRN; MELATONIN 5 MG TABLETS PO PRN; MENTHOL/PHENOL 1 EACH UD MM PRN; METHADONE HCL 40 MG DISPERSABLE TABLET PO SCH; NICOTINE 14 MG/24 HOURS TOPICAL PATCH TD PRN; NICOTINE POLACRILEX 2 MG GUM BUC PRN; P-EPHED 60MG/TRIPROLIDI 2.5MG TABLET PO PRN; PRENATAL VITAMINS W/ FOLIC ACID TABLET (FP) PO SCH; THIAMINE HCL 100 MG TABLET (FP) PO SCH; guaiFENesin/D-METHORPHAN HB 10 ML UNIT-DOSE CUPS PO PRN
[2019-01-02 13:00] VITALS: BMI 31.0
--- NOTE | 2019-01-02 13:52 | HP ---
CIWA Score - Admission Criteria [facility] Guidelines: Admission for Medically Managed Detox: Requires at least one of the followin. CIWA greater than 12 2. Seizures within the past 24 hours 3. Delirium tremens within the past 24 hours 4. Hallucinations within the past 24 hours 5. Acute intervention needed for co occurring medical disorder 6. Acute intervention needed for co occurring psychiatric disorder 7. Severe withdrawal that cannot be handled at a lower level of care (continued vomiting, continued diarrhea, abnormal vital signs) requiring intravenous medication and/or fluids 8. Admission ROS S - HPI Allergies/Adverse Reactions: Allergies Allergy/AdvReac Type Severity Reaction Status Date / Time No Known Allergies Allergy Verified 01/02/19 15:20 History of Present Illness: pt here for rehab admission , was transferred from detox to rehab yesterday however due to bed availability pt was d/c home and returned today . On MMTP 80 mg today , since 18 mo ago . PMHX : reports swelling in mariaa LE L> R w / pain x 3 years , has been using a cane for ambulation . PSHx : denies PSych : depression , denies SI / HI . meds : denies Exam Limitations: No Limitations - Ebola screening Have you traveled outside of the country in the last 21 days: No Have you had contact with anyone from an Ebola affected area: No Have you been sick,other than usual withdrawal symptoms: No - Review of Systems Constitutional: No Symptoms Reported EENT: reports: Other (glasses - reading , denies dysphagia) Respiratory: reports: No Symptoms reported Cardiac: reports: No Symptoms Reported GI: reports: No Symptoms Reported : reports: Other (hesitancy) Musculoskeletal: reports: Joint Swelling (mariaa ankles) Integumentary: reports: Erythema (mariaa legs) Neuro: reports: No Symptoms reported Endocrine: reports: No Symptoms Reported Psychiatric: reports: Orientated x3 Patient History - Patient Medical History Hx Anemia: No Hx Asthma: No Hx Chronic Obstructive Pulmonary Disease (COPD): No Hx Cancer: No Hx Cardiac Disorders: No Hx Congestive Heart Failure: No Hx Hypertension: No Hx Hypercholesterolemia: No Hx Pacemaker: No HX Cerebrovascular Accident: No Hx Seizures: No Hx Dementia: No Hx Diabetes: No Hx Gastrointestinal Disorders: Yes (acid reflux, not on med) Hx Liver Disease: No Hx Genitourinary Disorders: No Hx Sexually Transmitted Disorders: No Hx Renal Disease (ESRD): No Hx Thyroid Disease: No Hx Human Immunodeficiency Virus (HIV): No (negative, declines testing) Hx Hepatitis C: Yes (- states he might have been treated but don't sound certain ) Hx Depression: Yes ( not on meds) Hx Suicide Attempt: No (denies current SI) Hx Bipolar Disorder: Yes Hx Schizophrenia: No - Patient Surgical History Past Surgical History: No Hx Neurologic Surgery: No Hx Cataract Extraction: No Hx Cardiac Surgery: No Hx Lung Surgery: No Hx Breast Surgery: No Hx Breast Biopsy: No Hx Abdominal Surgery: No Hx Appendectomy: No Hx Cholecystectomy: No Hx Genitourinary Surgery: No Hx Section: No Hx Orthopedic Surgery: No Anesthesia Reaction: No - Smoking Cessation Smoking history: Current every day smoker Have you smoked in the past 12 months: Yes Aproximately how many cigarettes per day: 40 Hx Chewing Tobacco Use: No Initiated information on smoking cessation: No Family Disease History - Family Disease History Family Disease History: Heart Disease: Father (MASSIVE STROKE-) Admission Physical Exam S - Vital Signs Vital Signs: Vital Signs - 24 hr 01/02/19 12:59 Temperature 99.1 F Pulse Rate 77 Respiratory 19 Rate Blood Pressure 136/77 - Physical General Appearance: Yes: Moderate Distress, Other (limping left leg) HEENTM: Yes: EOMI, Hearing grossly Normal, Normocephalic, Normal Voice Respiratory: Yes: Chest Non-Tender, Lungs Clear, Normal Breath Sounds Neck: Yes: No masses,lesions,Nodules, Trachea in good position Cardiology: Yes: Regular Rhythm, Regular Rate, S1, S2 Abdominal: Yes: Normal Bowel Sounds, Non Tender, Soft Genitourinary: Yes: Within Normal Limits Back: Yes: Normal Inspection Musculoskeletal: Yes: Joint Stiffness, Joint swelling (left ankle >> right , + tenderness to palpation medial > lateral malleolus , decreased ROM) Extremities: Yes: Pedal Edema (left > R posterior tibial), Swelling (mariaa ankles R >> LEft), Calf Tenderness (right), Erythema Neurological: Yes: Motor Strength 5/5, Normal Mood/Affect Integumentary: Yes: Erythema, Pitting Edema (r ankle > left) - Addiitonal Findings: pt to go to ER for clearance , mariaa LE Doppler r/o DVT and ankle XR , d/w ER attending Dr Vides , nursing aware , pt is agreeable w/ POC , will return for rehab when above studies completed. addendum 6;16 pm returned from ER xr negative for frx - Diagnostic (1) Alcohol dependence Current Visit: Yes Status: Chronic Qualifiers: Substance use status: in remission Qualified Code(s): F10.21 - Alcohol dependence, in remission (2) Cocaine dependence Current Visit: No Status: Chronic Qualifiers: Substance use status: in remission Qualified Code(s): F14.21 - Cocaine dependence, in remission (3) Nicotine dependence Current Visit: No Status: Chronic Qualifiers: Nicotine product type: cigarettes Substance use status: in withdrawal Qualified Code(s): F17.213 - Nicotine dependence, cigarettes, with withdrawal (4) Cannabis dependence Current Visit: No Status: Chronic (5) Opioid dependence on agonist therapy Current Visit: No Status: Chronic (6) Edema, lower extremity Current Visit: Yes Status: Acute [facility] Breath Alcohol Content Breath Alcohol Content: 0 Urine Drug Screen - Results Drug Screen Negative: No Urine Drug Screen Results: THC-Marijuana, BZO-Benzodiazepines, MTD-Methadone Inpatient Rehab Admission - Rehab Decision to Admit Inpatient rehab admission?: Yes - Initial Determination Are CD services needed?: Yes Free of communicable disease: Yes Not in need of hospitalization: No - Rehab Admission Criteria Previous failed treatment: Yes Poor recovery environment: Yes Comorbidities: No Lacks judgement: Yes Patient is meeting Inpatient Rehab admission criteria:: Yes (upon return from ER w/ clearance for LE )
[2019-01-02] MEDS ORDERED: MAGNESIUM HYDROX 2400MG/30ML ORAL SUSPENSION 30 ML CUP PO PRN (22:37)
[2019-01-02] MEDS ORDERED: IBUPROFEN 400 MG TABLET (FP) PO PRN (22:37)
[2019-01-02] MEDS ORDERED: MAG HYDROX/AL HYDROX/SIMETH 30 ML UNIT-DOSE CUP PO PRN (22:37)
[2019-01-02] MEDS ORDERED: ACETAMINOPHEN 325 MG TABLET (FP) PO PRN (22:37)
[2019-01-02] MEDS ORDERED: LOPERAMIDE HCL 2 MG CAPSULE PO PRN (22:37)
[2019-01-02] MEDS ORDERED: MENTHOL/PHENOL 1 EACH UD MM PRN (22:37)
[2019-01-02] MEDS ORDERED: P-EPHED 60MG/TRIPROLIDI 2.5MG TABLET PO PRN (22:37)
[2019-01-02] MEDS ORDERED: guaiFENesin/D-METHORPHAN HB 10 ML UNIT-DOSE CUPS PO PRN (22:37)
[2019-01-02] MEDS ORDERED: MAGNESIUM CITRATE 300 ML BOTTLE PO PRN (22:37)
[2019-01-03] MEDS: METHADONE HCL 40 MG DISPERSABLE TABLET PO SCH (07:45)
[2019-01-03] MEDS: NICOTINE 14 MG/24 HOURS TOPICAL PATCH TD SCH (10:22)
[2019-01-03] MEDS: PRENATAL VITAMINS W/ FOLIC ACID TABLET (FP) PO SCH (10:22)
[2019-01-03] MEDS: THIAMINE HCL 100 MG TABLET (FP) PO SCH (21:50)
[2019-01-04] MEDS: METHADONE HCL 40 MG DISPERSABLE TABLET PO SCH (06:21)
[2019-01-04] MEDS: PRENATAL VITAMINS W/ FOLIC ACID TABLET (FP) PO SCH (10:15)
[2019-01-04] MEDS: NICOTINE 14 MG/24 HOURS TOPICAL PATCH TD SCH (10:15)
[2019-01-04] MEDS: THIAMINE HCL 100 MG TABLET (FP) PO SCH (21:57)
[2019-01-05] MEDS: MELATONIN 5 MG TABLETS PO PRN ×2 (01:18→22:09)
[2019-01-05] MEDS: METHADONE HCL 40 MG DISPERSABLE TABLET PO SCH (06:52)
[2019-01-05] MEDS: NICOTINE 14 MG/24 HOURS TOPICAL PATCH TD SCH (10:01)
[2019-01-05] MEDS: NICOTINE POLACRILEX 2 MG GUM BC PRN (10:02)
[2019-01-05] MEDS: PRENATAL VITAMINS W/ FOLIC ACID TABLET (FP) PO SCH (10:02)
[2019-01-05] MEDS: THIAMINE HCL 100 MG TABLET (FP) PO SCH (22:09)
[2019-01-06] MEDS: METHADONE HCL 40 MG DISPERSABLE TABLET PO SCH (06:15)
[2019-01-06] MEDS: NICOTINE POLACRILEX 2 MG GUM BC PRN ×2 (10:24→12:18)
[2019-01-06] MEDS: NICOTINE 14 MG/24 HOURS TOPICAL PATCH TD SCH (10:24)
[2019-01-06] MEDS: PRENATAL VITAMINS W/ FOLIC ACID TABLET (FP) PO SCH (10:24)
[2019-01-06] MEDS: THIAMINE HCL 100 MG TABLET (FP) PO SCH (23:24)
[2019-01-07] MEDS: MELATONIN 5 MG TABLETS PO PRN (01:54)
[2019-01-07] MEDS: METHADONE HCL 40 MG DISPERSABLE TABLET PO SCH (06:34)
[2019-01-07] MEDS: NICOTINE POLACRILEX 2 MG GUM BC PRN ×2 (06:36→10:29)
--- NOTE | 2019-01-07 10:17 | PN ---
S Progress Note Note: PT C/O PAIN AND LUMP ON BUTTOCK AREA. REPORTS HX OF COCCYX CYST 10 YEARS AGO AND THINKS IT'S REOCCURRING. Vital Signs - 24 hr 01/07/19 01/07/19 01/07/19 00:30 03:30 07:00 Temperature 97.6 F Pulse Rate 62 Respiratory 18 18 20 Rate Blood Pressure 141/73 EXAM:RED AND SWOLLEN AREA ON INNER ASPECT OF LEFT BUTTOCK. NO DRAINAGE NOTED. A:BOIL PLAN;WARM COMPRESS APPLY BID AND KEEP AREA CLEAN. KEFLEX 500 MG PO Q6H X 7 DAYS BACITRACIN OINTMENT APPLY BID
[2019-01-07] MEDS: NICOTINE 14 MG/24 HOURS TOPICAL PATCH TD SCH (10:29)
[2019-01-07] MEDS: PRENATAL VITAMINS W/ FOLIC ACID TABLET (FP) PO SCH (10:29)
[2019-01-07 11:16] LABS: URINE APPEARANCE SLCLOUDY; URINE BILIRUBIN NEGATIVE (<2.0 mg/dL); URINE COLOR YELLOW; URINE GLUCOSE (UA) NEGATIVE (NEGATIVE); URINE KETONE NEGATIVE (NEGATIVE); URINE LEUK ESTERASE NEGATIVE (NEGATIVE); URINE NITRITE NEGATIVE (NEGATIVE); URINE PROTEIN NEGATIVE (NEGATIVE); URINE UROBILINOGEN NEGATIVE mg/dL (0.2-1.0)
[2019-01-07] MEDS: BACITRACIN 0.9 GM PACKET TP SCH ×2 (15:29→22:34)
[2019-01-07] MEDS: CEPHALEXIN MONOHYDRATE 500 MG CAPSULE (UD) PO SCH ×3 (15:29→23:48)
[2019-01-07] MEDS: THIAMINE HCL 100 MG TABLET (FP) PO SCH (22:34)
[2019-01-08] MEDS: METHADONE HCL 40 MG DISPERSABLE TABLET PO SCH (06:05)
[2019-01-08] MEDS: CEPHALEXIN MONOHYDRATE 500 MG CAPSULE (UD) PO SCH ×4 (06:06→23:57)
[2019-01-08] MEDS: BACITRACIN 0.9 GM PACKET TP SCH ×2 (10:24→21:44)
[2019-01-08] MEDS: PRENATAL VITAMINS W/ FOLIC ACID TABLET (FP) PO SCH (10:25)
[2019-01-08] MEDS: NICOTINE POLACRILEX 2 MG GUM BC PRN ×2 (10:26→14:33)
[2019-01-08] MEDS: NICOTINE 14 MG/24 HOURS TOPICAL PATCH TD SCH (10:26)
[2019-01-08] MEDS: THIAMINE HCL 100 MG TABLET (FP) PO SCH (21:44)
[2019-01-09] MEDS: MELATONIN 5 MG TABLETS PO PRN ×2 (00:39→21:29)
[2019-01-09] MEDS: CEPHALEXIN MONOHYDRATE 500 MG CAPSULE (UD) PO SCH ×4 (06:19→23:03)
[2019-01-09] MEDS: METHADONE HCL 40 MG DISPERSABLE TABLET PO SCH (06:20)
[2019-01-09] MEDS ORDERED: METHADONE HCL 40 MG DISPERSABLE TABLET PO SCH (06:31)
--- NOTE | 2019-01-09 09:46 | PN ---
S Progress Note Note: PT REPORTS CYST ON BUTTOCK NOW DRAINING SINCE YESTERDAY. Vital Signs - 24 hr 01/09/19 01/09/19 03:30 07:03 Temperature 98.5 F Pulse Rate 57 L Respiratory 18 18 Rate Blood Pressure 125/66 PLAN:CLEAN AREA WITH NORMAL SALINE DIRECTED. APPLY BACITRACIN OINTMENT AND COVER WITH STERILE GAUZE DRESSING DIRECTED. CONTINUE ANTIBIOTICS THERAPY DIRECTED.
[2019-01-09] MEDS: PRENATAL VITAMINS W/ FOLIC ACID TABLET (FP) PO SCH (10:09)
[2019-01-09] MEDS: BACITRACIN 0.9 GM PACKET TP SCH ×2 (10:09→21:28)
[2019-01-09] MEDS: NICOTINE POLACRILEX 2 MG GUM BC PRN ×2 (10:10→12:53)
[2019-01-09] MEDS: NICOTINE 14 MG/24 HOURS TOPICAL PATCH TD SCH (10:11)
[2019-01-09] MEDS: THIAMINE HCL 100 MG TABLET (FP) PO SCH (21:29)
[2019-01-10] MEDS ORDERED: hydrOXYzine PAMOATE 25 MG CAPSULE (FP) PO ONE (01:17)
[2019-01-10] MEDS ORDERED: METHADONE HCL 40 MG DISPERSABLE TABLET PO SCH (06:00)
[2019-01-10] MEDS: CEPHALEXIN MONOHYDRATE 500 MG CAPSULE (UD) PO SCH ×4 (06:15→23:36)
[2019-01-10] MEDS: BACITRACIN 0.9 GM PACKET TP SCH ×2 (09:53→21:59)
[2019-01-10] MEDS: PRENATAL VITAMINS W/ FOLIC ACID TABLET (FP) PO SCH (09:54)
[2019-01-10] MEDS: NICOTINE POLACRILEX 2 MG GUM BC PRN ×2 (09:54→12:02)
[2019-01-10] MEDS: NICOTINE 14 MG/24 HOURS TOPICAL PATCH TD SCH (09:54)
[2019-01-10] MEDS: THIAMINE HCL 100 MG TABLET (FP) PO SCH (21:59)
[2019-01-11] MEDS: MELATONIN 5 MG TABLETS PO PRN ×2 (00:08→21:38)
[2019-01-11] MEDS: CEPHALEXIN MONOHYDRATE 500 MG CAPSULE (UD) PO SCH ×4 (06:07→23:37)
[2019-01-11] MEDS: METHADONE HCL 40 MG DISPERSABLE TABLET PO SCH (07:18)
[2019-01-11] MEDS: BACITRACIN 0.9 GM PACKET TP SCH ×2 (10:09→21:38)
[2019-01-11] MEDS: PRENATAL VITAMINS W/ FOLIC ACID TABLET (FP) PO SCH (10:09)
[2019-01-11] MEDS: NICOTINE 14 MG/24 HOURS TOPICAL PATCH TD SCH (10:09)
[2019-01-11] MEDS: NICOTINE POLACRILEX 2 MG GUM BC PRN ×2 (10:10→12:21)
[2019-01-11] MEDS: THIAMINE HCL 100 MG TABLET (FP) PO SCH (21:38)
[2019-01-12] MEDS: CEPHALEXIN MONOHYDRATE 500 MG CAPSULE (UD) PO SCH ×4 (06:04→23:11)
[2019-01-12] MEDS: METHADONE HCL 40 MG DISPERSABLE TABLET PO SCH (06:04)
[2019-01-12] MEDS: BACITRACIN 0.9 GM PACKET TP SCH ×2 (10:18→21:47)
[2019-01-12] MEDS: PRENATAL VITAMINS W/ FOLIC ACID TABLET (FP) PO SCH (10:18)
[2019-01-12] MEDS: NICOTINE 14 MG/24 HOURS TOPICAL PATCH TD SCH (10:18)
[2019-01-12] MEDS: NICOTINE POLACRILEX 2 MG GUM BC PRN ×3 (10:20→17:17)
[2019-01-12] MEDS: THIAMINE HCL 100 MG TABLET (FP) PO SCH (21:47)
[2019-01-12] MEDS: MELATONIN 5 MG TABLETS PO PRN (23:11)
[2019-01-13] MEDS: METHADONE HCL 40 MG DISPERSABLE TABLET PO SCH (06:12)
[2019-01-13] MEDS: CEPHALEXIN MONOHYDRATE 500 MG CAPSULE (UD) PO SCH ×2 (06:13→12:53)
[2019-01-13] MEDS: NICOTINE POLACRILEX 2 MG GUM BC PRN ×4 (06:15→21:34)
[2019-01-13] MEDS: PRENATAL VITAMINS W/ FOLIC ACID TABLET (FP) PO SCH (10:24)
[2019-01-13] MEDS: BACITRACIN 0.9 GM PACKET TP SCH ×2 (10:24→21:35)
[2019-01-13] MEDS: NICOTINE 14 MG/24 HOURS TOPICAL PATCH TD SCH (10:24)
[2019-01-13] MEDS: THIAMINE HCL 100 MG TABLET (FP) PO SCH (21:34)
[2019-01-13] MEDS: MELATONIN 5 MG TABLETS PO PRN (23:44)
[2019-01-14] MEDS: METHADONE HCL 40 MG DISPERSABLE TABLET PO SCH (06:06)
[2019-01-14] MEDS: NICOTINE POLACRILEX 2 MG GUM BC PRN ×2 (06:13→10:25)
[2019-01-14] MEDS: BACITRACIN 0.9 GM PACKET TP SCH ×2 (10:25→21:35)
[2019-01-14] MEDS: NICOTINE 14 MG/24 HOURS TOPICAL PATCH TD SCH (10:25)
[2019-01-14] MEDS: PRENATAL VITAMINS W/ FOLIC ACID TABLET (FP) PO SCH (10:25)
[2019-01-14] MEDS: THIAMINE HCL 100 MG TABLET (FP) PO SCH (21:35)
[2019-01-14] MEDS: MELATONIN 5 MG TABLETS PO PRN (21:35)
[2019-01-15] MEDS: METHADONE HCL 40 MG DISPERSABLE TABLET PO SCH (06:20)
[2019-01-15] MEDS: NICOTINE POLACRILEX 2 MG GUM BC PRN (06:22)
[2019-01-15 07:14] VITALS: BP 131/64; PULSE 56; TEMP 98.6
[2019-01-15] MEDS: BACITRACIN 0.9 GM PACKET TP SCH (09:23)
[2019-01-15] MEDS: PRENATAL VITAMINS W/ FOLIC ACID TABLET (FP) PO SCH (09:23)
[2019-01-15] MEDS: NICOTINE 14 MG/24 HOURS TOPICAL PATCH TD SCH (09:23)
--- NOTE | 2019-01-15 11:13 | PN ---
[facility] Progress Note Note: PT COMPLETED REHAB AND DISCHARGE TODAY. PT MET WITH HIS COUNSELOR LELE MERIDA AND PT HAS BEEN REFERRED TO [facility] FOR CD AFTERCARE.PT ON [facility] AND REPORTS HE HAS PRIMARY CARE AT [facility](SAYS "HIS NAME IS ON MY INSURANCE CARD" IN [place]). COURTESY RX OF NARCAN BELOW ELECTRONICALLY SENT TO [facility] FOR TOURISM RADIO PRESENTER. ALERT O X 3. DENIES S/H/I. Home Medications Medication Instructions Recorded Methadone [Dolophine -] 80 mg PO DAILY 12/28/18 Naloxone HCl [Narcan] 4 mg NS ONCE #1 spray 01/15/19 Vital Signs - 24 hr 01/15/19 01/15/19 01/15/19 00:30 03:30 07:13 Temperature 98.6 F Pulse Rate 56 L Respiratory 18 18 18 Rate Blood Pressure 131/64 Laboratory Tests 01/06/19 13:20 Urine Color Yellow Urine Appearance Slcloudy Urine pH 5.0 Ur Specific [place] 1.019 Urine Protein Negative Urine Glucose (UA) Negative Urine Ketones Negative Urine Blood Negative Urine Nitrite Negative Urine Bilirubin Negative Urine Urobilinogen Negative Ur Leukocyte Esterase Negative NAD MEDICALLY STABLE PLAN:FOLLOW UP WITH CD AFTERCARE AT [facility] ON 01/20/19 @10:00 FOLLOW UP WITH PCP AT [facility] WITHIN 1-2 WEEKS AFTER DISCHARGE.
== END 2019-01-15 09:55 | disposition home or self-care (01) | DRG 772 ==
LOC: YASAS 12:01 → Y5N 18:12
PROVIDERS: ADMIT Neuromusculoskeletal Medicine & OMM; ATTEND Neuromusculoskeletal Medicine & OMM
PROC: HZ42ZZZ Group Counseling for Substance Abuse Treatment, Cognitive-Behavioral (ICD-10-PCS; principal; 2019-01-02)
DX: F10.20 Alcohol dependence, uncomplicated (principal); F11.20 Opioid dependence, uncomplicated; F14.20 Cocaine dependence, uncomplicated; F12.20 Cannabis dependence, uncomplicated; F17.210 Nicotine dependence, cigarettes, uncomplicated; B18.2 Chronic viral hepatitis C; R60.0 Localized edema; L02.31 Cutaneous abscess of buttock
CPT/HCPCS: 81003

== ENCOUNTER 2019-01-02 15:07 | Emergency (ER) | payer OTHER ==
[2019-01-02 15:24] VITALS: BP 111/75; PULSE 65; TEMP 98.3; BMI 31.4
--- NOTE | 2019-01-02 15:25 | PDOC ---
Rapid Medical Evaluation Time Seen by Provider: 01/02/19 15:23 Medical Evaluation: Allergies Allergy/AdvReac Type Severity Reaction Status Date / Time No Known Allergies Allergy Verified 01/02/19 15:20 01/02/19 15:23 I performed a brief in-person evaluation of this patient. Chief complaint: left ankle pain. Pertinent physical exam findings: bilat 1+ LE edema (chronic per patient) L>R, left medial malleolar tenderness, mild calf tenderness. I have ordered the following: ankle foot/xray, u/s to r/o DVT Patient to proceed to the ED for further evaluation. Discharge Disposition - Diagnosis Left leg swelling - Referrals - Patient Instructions - Post Discharge Activity
--- NOTE | 2019-01-02 16:56 | PDOC ---
History of Present Illness - General Chief Complaint: Edema Stated Complaint: Edema Time Seen by Provider: 01/02/19 15:23 History Source: Patient Exam Limitations: No Limitations - History of Present Illness Initial Comments: 01/02/19 16:57 Patient was initially seen and examined. He states that he is at [address] however during admission process is found to have a left ankle edema +1. He was sent up here for further evaluation prior to admission. Past medical history is substance and alcohol abuse Past History - Past Medical History Allergies/Adverse Reactions: Allergies Allergy/AdvReac Type Severity Reaction Status Date / Time No Known Allergies Allergy Verified 01/02/19 15:20 Home Medications: Ambulatory Orders Methadone [Dolophine -] 80 mg PO DAILY 12/28/18 Anemia: No Asthma: No Cancer: No Cardiac Disorders: No CVA: No COPD: No CHF: No Dementia: No Diabetes: No GI Disorders: Yes (acid reflux, not on med) Disorders: No HTN: No Hypercholesterolemia: No Kidney Stones: No Liver Disease: No Seizures: No Thyroid Disease: No - Surgical History Abdominal Surgery: No Appendectomy: No Cardiac Surgery: No Cholecystectomy: No Lung Surgery: No Neurologic Surgery: No Orthopedic Surgery: No - Reproductive History Testicular Surgery: No - Suicide/Smoking/Psychosocial Hx Smoking History: Never smoked Have you smoked in the past 12 months: Yes Number of Cigarettes Smoked Daily: 40 'Breaking Loose' booklet given: 12/28/18 Hx Alcohol Use: Yes Drug/Substance Use Hx: Yes Substance Use Type: Alcohol, Heroin Hx Substance Use Treatment: Yes Review of Systems - Review of Systems Able to Perform ROS?: Yes Comments:: 01/02/19 16:58 General statement: Ankle swelling Hematology: neg history of bleeding/blood thinners Skin: Neg for lesions, rash, bruising. HEENT: Neg symptoms Respiratory: Neg SOB or difficulty in breathing Cardiac: Neg chest pain GI: Neg pain, n/v : Neg problems on voiding MS: Neg for joint pain/stiffness, no edema Neuro: Neg for LOC, weakness, Endocrine: Neg for excess thirst/hunger, cold/heat intolerance, excess sweating Allergies: Neg for allergies *Physical Exam - Vital Signs Last Vital Signs Temp Pulse Resp BP Pulse Ox 98.3 F 65 16 111/75 99 01/02/19 15:21 01/02/19 15:21 01/02/19 15:21 01/02/19 15:21 01/02/19 15:21 - Physical Exam Comments: 01/02/19 16:58 General Appearance: This well appearing 58-year-old gentleman V/S: hemodynamically stable, afebrile Skin: WNL of pt's skin color, no signs of pallor, mottling, cyanosis Head:symmetrical Eyes: EOM's intact, PERRLA Ears: denies pain Nose: patent Throat: lips, teeth, gums, tongue, buccal mucos pink and moist Lungs: Chest symmetry equal. Cap refill <3 seconds. Lung sounds clear Cardiac: PMI at R 4MCL space, pos S1 and S2, regular rate. Abdomen: Soft, round, nontender : Not observed Muscularskeletal: Gait steady, ambulated in to ER, +PMS with trace +1 edema Neuro: AAOx3, cognitively intact, speech clear and appropriate. Moderate Sedation - Procedure Monitoring Vital Signs: Procedure Monitoring Vital Signs Temperature 98.3 F 01/02/19 15:21 Pulse Rate 65 01/02/19 15:21 Respiratory Rate 16 01/02/19 15:21 Blood Pressure 111/75 01/02/19 15:21 O2 Sat by Pulse Oximetry (%) 99 01/02/19 15:21 Medical Decision Making - Medical Decision Making 01/02/19 16:58 Patient initially seen and examined. Patient underwent a duplex of the extremity and is negative for any DVT. He underwent an x-ray to rule out any fracture. He has no fracture. He does ambulate with a cane and this is chronic edema. At this time the patient is going to be discharged back to [facility] [place] *DC/Admit/Observation/Transfer Diagnosis at time of Disposition: Left leg swelling - Discharge Dispostion Disposition: TRANSFER ACUTE CARE/OTHER HOSP Condition at time of disposition: Stable Decision to Admit order: No - Referrals - Patient Instructions Additional Instructions: Discharge instructions 1. Please follow up with your primary physician within the next few days and explain that you have been seen here in the Emergency Room. 2. If you experience any worsening of symptoms, please return to the ER 3. Rest him a keep her leg elevated, you may want to consider using compression stockings, follow up with your primary physician is U may need some water pills if you start see excess of swelling. - Post Discharge Activity
== END 2019-01-02 17:55 | disposition short-term general hospital (02) ==
LOC: JER 15:07
DX: R60.0 Localized edema (principal); F19.20 Other psychoactive substance dependence, uncomplicated; Z87.19 Personal history of other diseases of the digestive system
CPT/HCPCS: 73610-TC-LT-FY; 73630-TC-LT; 93971-TC; 99281-25

== ENCOUNTER 2021-06-13 07:03 | Inpatient (IN) | payer OTHER ==
[2021-06-13] MEDS ORDERED: MAG HYDROX/AL HYDROX/SIMETH 30 ML UNIT-DOSE CUP PO ONE (07:58)
[2021-06-13] MEDS ORDERED: FAMOTIDINE 20 MG/50 ML IVPB 20 MG/50 ML MG IVPB ONE ×2 (07:58→08:15)
[2021-06-13] MEDS ORDERED: SUCRALFATE 1 GM TABLET (FP) PO ONE (07:58)
[2021-06-13] MEDS ORDERED: ACETAMINOPHEN 1000 MG/100 ML VIAL (NON FORMULARY) IVPB ONE (07:58)
[2021-06-13] MEDS ORDERED: ONDANSETRON 4 MG/2 ML VIAL IVPUSH ONE (07:58)
[2021-06-13] MEDS ORDERED: SODIUM CHLORIDE 1,000 ML IV STA (08:04)
[2021-06-13] MEDS ORDERED: MAG HYDROX/AL HYDROX/SIMETH 30 ML UNIT-DOSE CUP ONE (08:14)
[2021-06-13] MEDS ORDERED: SUCRALFATE 1 GM TABLET (FP) ONE (08:14)
[2021-06-13] MEDS ORDERED: ONDANSETRON 4 MG/2 ML VIAL ONE (08:14)
[2021-06-13] MEDS ORDERED: ACETAMINOPHEN INJECTION 100 ML IVPB ONE (08:14)
[2021-06-13 08:17] LABS: BASO % 0.5 % (0-2.0); EOS % 0.2 % (0-4.5); HEMATOCRIT 43.5 % (35.4-49); HEMOGLOBIN 14.3 GM/dL (11.7-16.9); LYMPH % 7.6 % (8-40); MCH 28.8 pg (25.7-33.7); MCHC 32.8 g/dl (32.0-35.9); MEAN CELL VOLUME 87.8 fl (80-96); MEAN PLT VOLUME 7.9 fl (7.5-11.1); MONO % 6.2 % (3.8-10.2); NEUT % 85.5 % (42.8-82.8); PLATELET COUNT 176 10^3/uL (134-434); RBC 4.95 M/mm3 (4.00-5.60); RDW 14.2 % (11.9-15.9); WHITE BLOOD COUNT 8.9 K/mm3 (4.0-10.0)
[2021-06-13 08:18] LABS: PH,URINE 8.5 (5.0-8.0); URINE APPEARANCE CLEAR; URINE BILIRUBIN NEGATIVE (NEGATIVE); URINE COLOR YELLOW; URINE GLUCOSE (UA) NEGATIVE (NEGATIVE); URINE KETONE NEGATIVE (NEGATIVE); URINE LEUK ESTERASE NEGATIVE (NEGATIVE); URINE NITRITE NEGATIVE (NEGATIVE); URINE PROTEIN NEGATIVE (NEGATIVE); URINE UROBILINOGEN 0.2 mg/dL (0.2-1.0)
[2021-06-13 08:34] LABS: CHLORIDE 105 mmol/L (98-107); SODIUM 138 mmol/L (136-145)
[2021-06-13 08:36] LABS: CALCIUM 9.3 mg/dL (8.5-10.1)
[2021-06-13 08:37] LABS: ALBUMIN 3.7 g/dl (3.4-5.0); ANION GAP 7 MMOL/L (8-16); BLOOD UREA NITROGEN 15.7 mg/dL (7-18); CO2 26 mmol/L (21-32); GLUCOSE,RANDOM 134 mg/dL (74-106); LIPASE 83 U/L (73-393)
[2021-06-13 08:40] LABS: SGOT/AST 27 U/L (15-37); SGPT/ALT 27 U/L (13-61)
[2021-06-13 08:41] LABS: BILIRUBIN,TOTAL 0.4 mg/dL (0.2-1)
[2021-06-13 08:42] LABS: TOT PROT 7.9 g/dl (6.4-8.2)
[2021-06-13 08:43] LABS: ALK PHOS 59 U/L (45-117)
[2021-06-13 08:44] LABS: INR 0.97 (0.83-1.09); PROTHROMBIN TIME (PATIENT) 11.8 SEC (9.7-13.0)
[2021-06-13 08:47] LABS: ACTIVATED PTT 31.4 SECONDS (25.2-36.5)
[2021-06-13] MEDS ORDERED: morphine CARPU-JECT 4 MG/1 ML DISP.SYRIN IVPUSH ONE (13:51)
[2021-06-13] MEDS ORDERED: ALBUTEROL SO4 2.5/IPRATROPIUM 0.5 INH SOL 3 ML VIAL.NEB. NEB ONE (14:01)
[2021-06-13] MEDS ORDERED: morphine SULFATE 4 MG/ML VIAL ONE (14:02)
[2021-06-13] MEDS: ALBUTEROL SO4 2.5/IPRATROPIUM 0.5 INH SOL 3 ML VIAL.NEB. NEB SCH ×2 (14:13→14:14)
[2021-06-14] MEDS: LACTATED RINGERS SOLUTION 1,000 ML/1,000 ML INFUS.BAG IV SCH ×2 (03:06→18:41)
[2021-06-14 03:11] VITALS: BMI 29.3
[2021-06-14 08:22] LABS: BASO % 0.4 % (0-2.0); HEMOGLOBIN 15.7 GM/dL (11.7-16.9); LYMPH % 7.9 % (8-40); MCH 28.6 pg (25.7-33.7); MCHC 32.8 g/dl (32.0-35.9); MEAN CELL VOLUME 87.2 fl (80-96); MEAN PLT VOLUME 7.9 fl (7.5-11.1); MONO % 7.1 % (3.8-10.2); NEUT % 84.6 % (42.8-82.8); PLATELET COUNT 193 10^3/uL (134-434); RBC 5.51 M/mm3 (4.00-5.60); RDW 14.5 % (11.9-15.9); WHITE BLOOD COUNT 11.4 K/mm3 (4.0-10.0)
[2021-06-14 08:42] LABS: CALCIUM 9.5 mg/dL (8.5-10.1)
[2021-06-14 08:43] LABS: ALBUMIN 3.8 g/dl (3.4-5.0); BLOOD UREA NITROGEN 12.7 mg/dL (7-18); MAGNESIUM 2.1 mg/dL (1.8-2.4)
[2021-06-14 08:46] LABS: CREATININE 0.9 mg/dL (0.55-1.3); PHOSPHOROUS 2.8 mg/dL (2.5-4.9)
[2021-06-14 08:47] LABS: BILIRUBIN,TOTAL 0.6 mg/dL (0.2-1); TOT PROT 8.5 g/dl (6.4-8.2)
[2021-06-14] MEDS: FOLIC ACID 1 MG TABLET (FP) PO SCH (09:23)
[2021-06-14] MEDS: MULTIVITAMINS (DAILY MVI) TABLET (FP) PO SCH (09:23)
[2021-06-14] MEDS: THIAMINE HCL 100 MG TABLET (FP) PO SCH (09:23)
[2021-06-14] MEDS ORDERED: methaDONE HCL 10 MG TABLET ONE (10:37)
[2021-06-14] MEDS ORDERED: methaDONE HCL 40 MG DISPERSABLE TABLET ONE (10:37)
[2021-06-14] MEDS: methaDONE 80 MG, methaDONE 20 MG PO SCH (10:41)
[2021-06-14] MEDS ORDERED: methaDONE HCL 40 MG DISPERSABLE TABLET PO SCH (10:45)
[2021-06-14] MEDS: ACETAMINOPHEN 325 MG TABLET (FP) PO PRN (18:40)
[2021-06-14] MEDS: ENOXAPARIN NA (PORCINE) 40 MG/0.4 ML DISP.SYRIN SQ SCH (18:40)
[2021-06-15] MEDS ORDERED: methaDONE HCL 10 MG TABLET ONE (05:58)
[2021-06-15] MEDS ORDERED: methaDONE HCL 40 MG DISPERSABLE TABLET ONE (05:59)
[2021-06-15] MEDS: methaDONE 80 MG, methaDONE 20 MG PO SCH (06:02)
[2021-06-15] MEDS: ACETAMINOPHEN 325 MG TABLET (FP) PO PRN (06:33)
[2021-06-15 07:55] LABS: BASO % 0.3 % (0-2.0); EOS % 0.1 % (0-4.5); HEMATOCRIT 47.5 % (35.4-49); HEMOGLOBIN 15.7 GM/dL (11.7-16.9); LYMPH % 15.6 % (8-40); MCH 29.4 pg (25.7-33.7); MEAN PLT VOLUME 8.5 fl (7.5-11.1); MONO % 13.2 % (3.8-10.2); NEUT % 70.8 % (42.8-82.8); PLATELET COUNT 199 10^3/uL (134-434); RBC 5.34 M/mm3 (4.00-5.60); RDW 14.2 % (11.9-15.9); WHITE BLOOD COUNT 7.7 K/mm3 (4.0-10.0)
[2021-06-15 08:06] LABS: ALBUMIN 3.4 g/dl (3.4-5.0); CALCIUM 8.7 mg/dL (8.5-10.1)
[2021-06-15 08:07] LABS: BLOOD UREA NITROGEN 16.8 mg/dL (7-18)
[2021-06-15 08:11] LABS: PHOSPHOROUS 2.7 mg/dL (2.5-4.9); TOT PROT 7.4 g/dl (6.4-8.2)
[2021-06-15 08:12] LABS: BILIRUBIN,TOTAL 0.8 mg/dL (0.2-1)
[2021-06-15] MEDS: ENOXAPARIN NA (PORCINE) 40 MG/0.4 ML DISP.SYRIN SQ SCH (10:09)
[2021-06-15] MEDS: THIAMINE HCL 100 MG TABLET (FP) PO SCH (10:10)
[2021-06-15] MEDS: MULTIVITAMINS (DAILY MVI) TABLET (FP) PO SCH (10:10)
[2021-06-15] MEDS: FOLIC ACID 1 MG TABLET (FP) PO SCH (10:10)
[2021-06-15 10:26] VITALS: BP 131/71; PULSE 87; TEMP 98.8
== END 2021-06-15 15:46 | disposition home or self-care (01) ==
LOC: JER 07:03 → JERBED 13:25 → J7W 06-14 02:44
PROVIDERS: ATTEND Internal Medicine
DX: K80.80 Other cholelithiasis without obstruction (principal); F10.10 Alcohol abuse, uncomplicated; F11.20 Opioid dependence, uncomplicated
CPT/HCPCS: 36415; 71045-TC-FY; 74177-TC; 76705-TC; 78226-TC; 80053; 80061; 81003; 83690; 83721; 83735; 84100; 84484; 85025; 85610; 85730; 86850; 86900; 86901; 87086; 93005; 93010; 97116-GP; 97161-GP; 99285-25; A9537; C9803; J0131; Q9967; U0003; U0005

== ENCOUNTER 2021-08-01 22:23 | Emergency (ER) | payer OTHER ==
[2021-08-01 22:37] VITALS: BMI 29.5
[2021-08-01] MEDS ORDERED: SODIUM CHLORIDE 1,000 ML IV STA (23:20)
[2021-08-02 00:58] LABS: BASO % 0.1 % (0-2.0); HEMATOCRIT 49.2 % (35.4-49); HEMOGLOBIN 16.1 GM/dL (11.7-16.9); LYMPH % 5.2 % (8-40); MCH 28.6 pg (25.7-33.7); MCHC 32.8 g/dl (32.0-35.9); MEAN CELL VOLUME 87.3 fl (80-96); MEAN PLT VOLUME 8.3 fl (7.5-11.1); MONO % 8.1 % (3.8-10.2); NEUT % 86.6 % (42.8-82.8); PLATELET COUNT 222 10^3/uL (134-434); RBC 5.64 M/mm3 (4.00-5.60); RDW 14.2 % (11.9-15.9); WHITE BLOOD COUNT 15.4 K/mm3 (4.0-10.0)
[2021-08-02 01:30] LABS: CALCIUM 9.5 mg/dL (8.5-10.1)
[2021-08-02 01:32] LABS: ALBUMIN 3.8 g/dl (3.4-5.0); BLOOD UREA NITROGEN 13.9 mg/dL (7-18)
[2021-08-02 01:36] LABS: BILIRUBIN,TOTAL 0.6 mg/dL (0.2-1); TOT PROT 9.1 g/dl (6.4-8.2)
[2021-08-02 02:34] LABS: COCAINE, UR NEGATIVE (NEGATIVE)
[2021-08-02 02:36] LABS: PHENCYCLIDINE,URINE NEGATIVE (NEGATIVE)
[2021-08-02 02:38] LABS: METHADONE, UR POSITIVE (NEGATIVE); OPIATES, URI POSITIVE (NEGATIVE); URINE AMPHETAMINES NEGATIVE (NEGATIVE); URINE BARBITURATES NEGATIVE (NEGATIVE); URINE BENZODIAZEPINES NEGATIVE (NEGATIVE)
[2021-08-02] MEDS ORDERED: ONDANSETRON 4 MG/2 ML VIAL IVPUSH ONE (03:02)
[2021-08-02] MEDS ORDERED: FAMOTIDINE 20 MG/50 ML IVPB 20 MG/50 ML MG IVPB ONE ×2 (03:02→03:20)
[2021-08-02] MEDS ORDERED: ONDANSETRON 4 MG/2 ML VIAL ONE (03:20)
[2021-08-02 03:31] LABS: EPI CELLS 9 /uL (0-25.1); HYALINE CASTS 3 /uL (0-3.1); PH,URINE 5.5 (5.0-8.0); URINE APPEARANCE CLEAR; URINE BACTERIA 9 /uL (0-1359); URINE BILIRUBIN NEGATIVE (NEGATIVE); URINE COLOR YELLOW; URINE GLUCOSE (UA) NEGATIVE (NEGATIVE); URINE KETONE 2+ (NEGATIVE); URINE LEUK ESTERASE NEGATIVE (NEGATIVE); URINE NITRITE NEGATIVE (NEGATIVE); URINE PROTEIN 3+ (NEGATIVE); URINE RBC 11 /uL (0-23.9); URINE WBC 18 /uL (0-25.8)
[2021-08-02 06:42] VITALS: BP 171/94; PULSE 60; TEMP 99.1
== END 2021-08-02 07:00 | disposition home or self-care (01) ==
LOC: JER 22:23
PROC: 3E033GC Introduction of Other Therapeutic Substance into Peripheral Vein, Percutaneous Approach (ICD-10-PCS; principal; 2021-08-01)
PROC: 3E033GC Introduction of Other Therapeutic Substance into Peripheral Vein, Percutaneous Approach (ICD-10-PCS; 2021-08-01)
PROC: 3E0337Z Introduction of Electrolytic and Water Balance Substance into Peripheral Vein, Percutaneous Approach (ICD-10-PCS; 2021-08-01)
DX: R10.9 Unspecified abdominal pain (principal)
CPT/HCPCS: 36415; 71046-TC-FY; 80053; 80307; 81003; 83690; 84484; 85025; 87086; 93005; 93010; 99285-25

== ENCOUNTER 2022-01-23 18:52 | Inpatient (IN) | payer OTHER ==
[2022-01-23] MEDS ORDERED: ACETAMINOPHEN 1000 MG/100 ML BAG IVPB ONE (20:30)
[2022-01-23] MEDS ORDERED: ACETAMINOPHEN INJECTION 100 ML IVPB ONE (20:40)
[2022-01-23] MEDS ORDERED: SODIUM CHLORIDE 1,000 ML IV STA (20:49)
[2022-01-23 21:40] LABS: BASO % 0.2 % (0-2.0); EOS % 0.1 % (0-4.5); HEMOGLOBIN 14.4 GM/dL (11.7-16.9); LYMPH % 8.4 % (8-40); MCH 29.2 pg (25.7-33.7); MCHC 33.6 g/dl (32.0-35.9); MEAN PLT VOLUME 8.5 fl (7.5-11.1); MONO % 5.2 % (3.8-10.2); NEUT % 86.1 % (42.8-82.8); PLATELET COUNT 184 10^3/uL (134-434); RBC 4.94 M/mm3 (4.00-5.60); WHITE BLOOD COUNT 5.9 K/mm3 (4.0-10.0)
[2022-01-23 21:53] LABS: CALCIUM 9.3 mg/dL (8.5-10.1)
[2022-01-23 21:54] LABS: ALBUMIN 3.6 g/dl (3.4-5.0); BLOOD UREA NITROGEN 12.2 mg/dL (7-18); MAGNESIUM 1.7 mg/dL (1.8-2.4)
[2022-01-23 21:57] LABS: PHOSPHOROUS 1.8 mg/dL (2.5-4.9)
[2022-01-23 21:58] LABS: BILIRUBIN,TOTAL 0.4 mg/dL (0.2-1); TOT PROT 7.9 g/dl (6.4-8.2)
[2022-01-23 23:20] LABS: PH,URINE >= 9.0 (5.0-8.0); URINE APPEARANCE CLEAR; URINE BILIRUBIN NEGATIVE (NEGATIVE); URINE COLOR YELLOW; URINE GLUCOSE (UA) NEGATIVE (NEGATIVE); URINE KETONE 1+ (NEGATIVE); URINE LEUK ESTERASE NEGATIVE (NEGATIVE); URINE NITRITE NEGATIVE (NEGATIVE); URINE PROTEIN NEGATIVE (NEGATIVE); URINE UROBILINOGEN 0.2 mg/dL (0.2-1.0)
[2022-01-24] MEDS ORDERED: LORazepam 2 MG/ML SDV VIAL IVPUSH ONE (00:20)
[2022-01-24] MEDS ORDERED: KETOROLAC TROMETHAMINE 15 MG/ML VIAL IVPUSH ONE (03:29)
[2022-01-24] MEDS ORDERED: ONDANSETRON 4 MG/2 ML VIAL IVPUSH PRN ×2 (03:30→11:16)
[2022-01-24] MEDS: LACTATED RINGERS SOLUTION 1,000 ML IV SCH (03:40)
[2022-01-24 05:01] VITALS: BMI 26.4
[2022-01-24] MEDS ORDERED: MAGNESIUM SULF 50% (8.12 MEQ/2 ML-1 GM VIAL) IVPB ONE ×2 (05:08→08:02)
[2022-01-24] MEDS ORDERED: SODIUM PHOSPHATE - 30 MM in DEXTROSE 5%-WATER - 500 ML IVPB ONE (06:30)
[2022-01-24 09:03] LABS: BASO % 0.3 % (0-2.0); HEMATOCRIT 46.3 % (35.4-49); HEMOGLOBIN 15.6 GM/dL (11.7-16.9); LYMPH % 7.3 % (8-40); MCH 29.3 pg (25.7-33.7); MCHC 33.6 g/dl (32.0-35.9); MEAN PLT VOLUME 8.2 fl (7.5-11.1); MONO % 4.6 % (3.8-10.2); NEUT % 87.8 % (42.8-82.8); PLATELET COUNT 194 10^3/uL (134-434); RBC 5.32 M/mm3 (4.00-5.60); WHITE BLOOD COUNT 6.5 K/mm3 (4.0-10.0)
[2022-01-24] MEDS ORDERED: MAG HYDROX/AL HYDROX/SIMETH 30 ML UNIT-DOSE CUP PO PRN (09:11)
[2022-01-24 09:19] LABS: ALBUMIN 3.8 g/dl (3.4-5.0)
[2022-01-24 09:20] LABS: BLOOD UREA NITROGEN 10.5 mg/dL (7-18); CALCIUM 9.4 mg/dL (8.5-10.1)
[2022-01-24 09:24] LABS: CREATININE 0.9 mg/dL (0.55-1.3); PHOSPHOROUS 3.2 mg/dL (2.5-4.9); TOT PROT 8.3 g/dl (6.4-8.2)
[2022-01-24 09:25] LABS: BILIRUBIN,TOTAL 0.5 mg/dL (0.2-1)
[2022-01-24] MEDS ORDERED: methaDONE HCL 40 MG DISPERSABLE TABLET PO SCH (09:45)
[2022-01-24] MEDS ORDERED: POTASSIUM CHLORIDE TABS 20 MEQ TABLET.ER (FP) PO ONE (10:20)
[2022-01-24] MEDS ORDERED: methaDONE HCL 10 MG TABLET ONE (10:41)
[2022-01-24] MEDS ORDERED: methaDONE HCL 40 MG DISPERSABLE TABLET ONE (10:42)
[2022-01-24] MEDS: methaDONE 80 MG, methaDONE 10 MG PO SCH (10:44)
[2022-01-24] MEDS ORDERED: POTASSIUM PHOSPHATE 30 MM in SODIUM CHLORIDE 500 ML IVPB ONE (15:00)
[2022-01-24] MEDS ORDERED: ACETAMINOPHEN 1000 MG/100 ML BAG IVPB ONE (18:45)
[2022-01-25] MEDS ORDERED: methaDONE HCL 40 MG DISPERSABLE TABLET ONE (05:41)
[2022-01-25] MEDS ORDERED: methaDONE HCL 10 MG TABLET ONE (05:41)
[2022-01-25] MEDS: methaDONE 80 MG, methaDONE 10 MG PO SCH (05:50)
[2022-01-25] MEDS: LACTATED RINGERS SOLUTION 1,000 ML IV SCH (05:58)
[2022-01-25] MEDS ORDERED: amLODIPine BESYLATE 5 MG TABLET (FP) PO ONE (08:47)
[2022-01-25 09:21] LABS: BASO % 0.3 % (0-2.0); EOS % 0.2 % (0-4.5); HEMOGLOBIN 14.8 GM/dL (11.7-16.9); LYMPH % 10.9 % (8-40); MCH 28.7 pg (25.7-33.7); MCHC 32.8 g/dl (32.0-35.9); MEAN CELL VOLUME 87.4 fl (80-96); MEAN PLT VOLUME 8.5 fl (7.5-11.1); MONO % 11.4 % (3.8-10.2); NEUT % 77.2 % (42.8-82.8); PLATELET COUNT 188 10^3/uL (134-434); RBC 5.15 M/mm3 (4.00-5.60); RDW 13.7 % (11.9-15.9); WHITE BLOOD COUNT 8.8 K/mm3 (4.0-10.0)
[2022-01-25 09:45] LABS: CALCIUM 9.2 mg/dL (8.5-10.1)
[2022-01-25 09:46] LABS: ALBUMIN 3.4 g/dl (3.4-5.0); BLOOD UREA NITROGEN 18.4 mg/dL (7-18); MAGNESIUM 2.4 mg/dL (1.8-2.4)
[2022-01-25] MEDS ORDERED: ACETAMINOPHEN 325 MG TABLET (FP) PO PRN ×2 (09:48)
[2022-01-25 09:49] LABS: CREATININE 1.2 mg/dL (0.55-1.3); PHOSPHOROUS 3.1 mg/dL (2.5-4.9)
[2022-01-25 09:50] LABS: BILIRUBIN,TOTAL 1.5 mg/dL (0.2-1); TOT PROT 7.5 g/dl (6.4-8.2)
[2022-01-25 14:16] LABS: PHENCYCLIDINE,URINE NEGATIVE (NEGATIVE); URINE BENZODIAZEPINES NEGATIVE (NEGATIVE)
[2022-01-25 14:17] LABS: COCAINE, UR NEGATIVE (NEGATIVE); METHADONE, UR POSITIVE (NEGATIVE); OPIATES, URI NEGATIVE (NEGATIVE); URINE AMPHETAMINES NEGATIVE (NEGATIVE); URINE BARBITURATES NEGATIVE (NEGATIVE)
[2022-01-25 17:48] LABS: BILIRUBIN,DIRECT 0.2 mg/dL (0.0-0.2)
[2022-01-26] MEDS ORDERED: methaDONE HCL 40 MG DISPERSABLE TABLET ONE (05:00)
[2022-01-26] MEDS ORDERED: methaDONE HCL 10 MG TABLET ONE (05:00)
[2022-01-26 06:21] VITALS: BP 119/76; PULSE 53; TEMP 98.1
[2022-01-26] MEDS: methaDONE 80 MG, methaDONE 10 MG PO SCH (06:49)
== END 2022-01-26 07:30 | disposition left against medical advice (07) ==
LOC: JER 18:52 → JERBED 01-24 02:21 → J8W 01-24 04:27
PROVIDERS: ADMIT Hospitalist; ATTEND Internal Medicine
DX: K80.20 Calculus of gallbladder without cholecystitis without obstruction (principal); K44.9 Diaphragmatic hernia without obstruction or gangrene; K76.9 Liver disease, unspecified; N28.1 Cyst of kidney, acquired; K21.9 Gastro-esophageal reflux disease without esophagitis; R11.2 Nausea with vomiting, unspecified; F31.9 Bipolar disorder, unspecified; F11.20 Opioid dependence, uncomplicated; F10.230 Alcohol dependence with withdrawal, uncomplicated
CPT/HCPCS: 36415; 71046-TC-FY; 74177-TC; 74181-TC; 76705-TC; 80053; 80307; 81003; 82248; 83605; 83690; 83735; 84100; 84484; 85025; 86803; 87086; 87340; 87517; 87522; 93005; 93010; 99285-25; C9803; U0003; U0005

== ENCOUNTER 2022-01-30 11:04 | Inpatient (IN) | payer OTHER ==
[2022-01-30] MEDS ORDERED: FAMOTIDINE 20 MG/50 ML IVPB 20 MG/50 ML MG IVPB ONE ×2 (12:39→13:06)
[2022-01-30] MEDS ORDERED: LIDOCAINE VISCOUS 2% ORAL/TOP 15 ML UNIT-DOSE CUP MM ONE (12:39)
[2022-01-30] MEDS ORDERED: ACETAMINOPHEN 1000 MG/100 ML BAG IVPB ONE (12:39)
[2022-01-30] MEDS ORDERED: MAG HYDROX/AL HYDROX/SIMETH -MYLANTA- ORAL SUSPENSION PO ONE (12:39)
[2022-01-30] MEDS ORDERED: SODIUM CHLORIDE 1,000 ML IV STA (12:40)
[2022-01-30] MEDS ORDERED: ACETAMINOPHEN INJECTION 100 ML IVPB ONE (13:05)
[2022-01-30] MEDS ORDERED: LIDOCAINE VISCOUS 2% ORAL/TOP 15 ML UNIT-DOSE CUP ONE (13:05)
[2022-01-30] MEDS ORDERED: MAG HYDROX/AL HYDROX/SIMETH 30 ML UNIT-DOSE CUP ONE (13:06)
[2022-01-30 13:31] LABS: BASO % 0.7 % (0-2.0); EOS % 1.4 % (0-4.5); HEMATOCRIT 36.5 % (35.4-49); HEMOGLOBIN 11.6 GM/dL (11.7-16.9); LYMPH % 25.6 % (8-40); MCH 28.4 pg (25.7-33.7); MCHC 31.8 g/dl (32.0-35.9); MEAN CELL VOLUME 89.3 fl (80-96); MEAN PLT VOLUME 8.7 fl (7.5-11.1); MONO % 13.5 % (3.8-10.2); NEUT % 58.8 % (42.8-82.8); PLATELET COUNT 176 10^3/uL (134-434); RBC 4.09 M/mm3 (4.00-5.60); RDW 13.4 % (11.9-15.9); WHITE BLOOD COUNT 4.8 K/mm3 (4.0-10.0)
[2022-01-30 13:37] LABS: INR 1.08 (0.83-1.09); PROTHROMBIN TIME (PATIENT) 12.4 SEC (9.7-13.0)
[2022-01-30 13:40] LABS: ACTIVATED PTT 30.1 SECONDS (25.2-36.5)
[2022-01-30 14:09] LABS: BLOOD UREA NITROGEN 14.4 mg/dL (7-18); CALCIUM 8.8 mg/dL (8.5-10.1)
[2022-01-30 14:12] LABS: CREATININE 0.9 mg/dL (0.55-1.3)
[2022-01-30 14:14] LABS: BILIRUBIN,TOTAL 0.4 mg/dL (0.2-1); TOT PROT 6.4 g/dl (6.4-8.2)
[2022-01-30 19:14] LABS: URINE APPEARANCE CLEAR; URINE BILIRUBIN NEGATIVE (NEGATIVE); URINE COLOR YELLOW; URINE GLUCOSE (UA) NEGATIVE (NEGATIVE); URINE KETONE NEGATIVE (NEGATIVE); URINE LEUK ESTERASE NEGATIVE (NEGATIVE); URINE NITRITE NEGATIVE (NEGATIVE); URINE PROTEIN NEGATIVE (NEGATIVE); URINE UROBILINOGEN 0.2 mg/dL (0.2-1.0)
[2022-01-31 04:35] VITALS: BMI 27.2
[2022-01-31] MEDS ORDERED: methaDONE HCL 10 MG TABLET PO SCH ×2 (06:00→09:30)
[2022-01-31 07:08] VITALS: BP 110/60; PULSE 54; TEMP 99.3
[2022-01-31] MEDS ORDERED: ACETAMINOPHEN 1000 MG/100 ML BAG IVPB PRN (09:29)
[2022-01-31] MEDS ORDERED: HEPARIN NA (PORCINE) 5,000 UNITS/ML 1ML VIAL SQ SCH (10:00)
[2022-01-31] MEDS ORDERED: NICOTINE 21 MG/24 HOURS TOPICAL PATCH TD SCH (10:00)
== END 2022-01-31 09:50 | disposition left against medical advice (07) ==
LOC: JER 11:04 → JERBED 20:24 → J5S 01-31 04:02
PROVIDERS: ADMIT Internal Medicine; ATTEND Internal Medicine
DX: K80.20 Calculus of gallbladder without cholecystitis without obstruction (principal); F11.20 Opioid dependence, uncomplicated; F17.200 Nicotine dependence, unspecified, uncomplicated; F10.10 Alcohol abuse, uncomplicated
CPT/HCPCS: 36415; 74177-TC; 76705-TC; 80053; 81003; 83690; 85025; 85610; 85730; 87086; 93005; 93010; 99285-25; C9803; Q9967; U0003; U0005

== ENCOUNTER 2022-03-14 19:27 | Emergency (ER) | payer OTHER ==
[2022-03-14 19:55] VITALS: TEMP 97.8; BMI 26.9
[2022-03-14] MEDS ORDERED: SODIUM CHLORIDE 1,000 ML IV STA (20:24)
[2022-03-14 21:16] LABS: BASO % 0.1 % (0-2.0); HEMATOCRIT 48.7 % (35.4-49); HEMOGLOBIN 16.2 GM/dL (11.7-16.9); LYMPH % 7.7 % (8-40); MCH 28.8 pg (25.7-33.7); MCHC 33.2 g/dl (32.0-35.9); MEAN CELL VOLUME 86.7 fl (80-96); MEAN PLT VOLUME 8.2 fl (7.5-11.1); MONO % 9.3 % (3.8-10.2); NEUT % 82.9 % (42.8-82.8); PLATELET COUNT 236 10^3/uL (134-434); RBC 5.62 M/mm3 (4.00-5.60); RDW 14.6 % (11.9-15.9); WHITE BLOOD COUNT 8.9 K/mm3 (4.0-10.0)
[2022-03-14 21:23] LABS: INR 1.13 (0.83-1.09)
[2022-03-14 21:26] LABS: ACTIVATED PTT 33.4 SECONDS (25.2-36.5)
[2022-03-14 21:45] LABS: ALBUMIN 3.7 g/dl (3.4-5.0); BLOOD UREA NITROGEN 14.6 mg/dL (7-18); CALCIUM 9.3 mg/dL (8.5-10.1)
[2022-03-14 21:47] LABS: CREATININE 0.9 mg/dL (0.55-1.3)
[2022-03-14 21:49] LABS: BILIRUBIN,TOTAL 0.7 mg/dL (0.2-1); TOT PROT 8.5 g/dl (6.4-8.2)
[2022-03-15 00:36] VITALS: BP 165/112; PULSE 71
[2022-03-15 01:44] LABS: EPI CELLS 8 /uL (0-25.1); HYALINE CASTS 2 /uL (0-3.1); PH,URINE 5.5 (5.0-8.0); URINE APPEARANCE CLEAR; URINE BACTERIA 35 /uL (0-1359); URINE BILIRUBIN NEGATIVE (NEGATIVE); URINE COLOR YELLOW; URINE GLUCOSE (UA) NEGATIVE (NEGATIVE); URINE KETONE 2+ (NEGATIVE); URINE LEUK ESTERASE NEGATIVE (NEGATIVE); URINE NITRITE NEGATIVE (NEGATIVE); URINE PROTEIN 2+ (NEGATIVE); URINE RBC 21 /uL (0-23.9); URINE WBC 10 /uL (0-25.8)
[2022-03-15 01:52] LABS: COCAINE, UR NEGATIVE (NEGATIVE); URINE BARBITURATES NEGATIVE (NEGATIVE)
[2022-03-15 01:53] LABS: PHENCYCLIDINE,URINE NEGATIVE (NEGATIVE); URINE BENZODIAZEPINES NEGATIVE (NEGATIVE)
[2022-03-15 02:11] LABS: METHADONE, UR POSITIVE (NEGATIVE); OPIATES, URI POSITIVE (NEGATIVE); URINE AMPHETAMINES NEGATIVE (NEGATIVE)
[2022-03-15] MEDS ORDERED: MAG HYDROX/AL HYDROX/SIMETH 30 ML UNIT-DOSE CUP ONE (05:42)
== END 2022-03-15 06:03 | disposition home or self-care (01) ==
LOC: JER 19:27
PROC: 3E0337Z Introduction of Electrolytic and Water Balance Substance into Peripheral Vein, Percutaneous Approach (ICD-10-PCS; principal; 2022-03-14)
DX: R10.13 Epigastric pain (principal)
CPT/HCPCS: 36415; 76705-TC; 80053; 80307; 81003; 83690; 85025; 85610; 85730; 86850; 86900; 86901; 87086; 93005; 93010; 99285-25

== ENCOUNTER 2022-08-18 08:49 | Inpatient (IN) | payer OTHER ==
[2022-08-18] MEDS ORDERED: SODIUM CHLORIDE 0.9% 500 ML INFUS.BAG IV ONE (09:36)
[2022-08-18] MEDS ORDERED: ONDANSETRON 4 MG/2 ML VIAL IVPUSH ONE (09:36)
[2022-08-18] MEDS ORDERED: ACETAMINOPHEN 1000 MG/100 ML BAG IVPB ONE (09:36)
[2022-08-18] MEDS ORDERED: FAMOTIDINE 20 MG/50 ML IVPB 20 MG/50 ML MG IVPB ONE ×2 (09:40→10:05)
[2022-08-18] MEDS ORDERED: MAG HYDROX/AL HYDROX/SIMETH 30 ML UNIT-DOSE CUP PO ONE (09:40)
[2022-08-18] MEDS ORDERED: ACETAMINOPHEN INJECTION 100 ML IVPB ONE ×2 (10:05→20:15)
[2022-08-18] MEDS ORDERED: MAG HYDROX/AL HYDROX/SIMETH 30 ML UNIT-DOSE CUP ONE (10:05)
[2022-08-18] MEDS ORDERED: ONDANSETRON 4 MG/2 ML VIAL ONE (10:05)
[2022-08-18 10:17] LABS: BASO % 0.2 % (0-2.0); HEMATOCRIT 51.3 % (35.4-49); HEMOGLOBIN 16.4 GM/dL (11.7-16.9); LYMPH % 6.1 % (8-40); MCH 28.4 pg (25.7-33.7); MEAN CELL VOLUME 88.9 fl (80-96); MEAN PLT VOLUME 8.4 fl (7.5-11.1); NEUT % 84.7 % (42.8-82.8); PLATELET COUNT 214 10^3/uL (134-434); RBC 5.77 M/mm3 (4.00-5.60); RDW 13.6 % (11.9-15.9); WHITE BLOOD COUNT 12.7 K/mm3 (4.0-10.0)
[2022-08-18 10:33] LABS: CALCIUM 9.4 mg/dL (8.5-10.1)
[2022-08-18 10:34] LABS: ALBUMIN 3.5 g/dl (3.4-5.0); BLOOD UREA NITROGEN 15.3 mg/dL (7-18); MAGNESIUM 1.7 mg/dL (1.8-2.4)
[2022-08-18 10:38] LABS: BILIRUBIN,TOTAL 0.8 mg/dL (0.2-1); TOT PROT 8.3 g/dl (6.4-8.2)
[2022-08-18] MEDS ORDERED: MAGNESIUM SULF 50% (8.12 MEQ/2 ML-1 GM VIAL) IVPB ONE (11:02)
[2022-08-18] MEDS ORDERED: MAGNESIUM SULFATE IN WATER 2 GM/50 ML IVPB IVPB ONE (11:42)
[2022-08-18] MEDS ORDERED: MECLIZINE HCL 25 MG TABLET (FP) ONE (11:50)
[2022-08-18] MEDS: LACTATED RINGERS SOLUTION 1,000 ML/1,000 ML INFUS.BAG IV SCH (11:50)
[2022-08-18] MEDS ORDERED: MECLIZINE HCL 25 MG TABLET (FP) PO ONE (11:50)
[2022-08-18 13:44] LABS: PH,URINE 6.5 (5.0-8.0); URINE APPEARANCE CLEAR; URINE BILIRUBIN NEGATIVE (NEGATIVE); URINE COLOR YELLOW; URINE GLUCOSE (UA) NEGATIVE (NEGATIVE); URINE KETONE NEGATIVE (NEGATIVE); URINE PROTEIN TRACE (NEGATIVE); URINE UROBILINOGEN 0.2 mg/dL (0.2-1.0)
[2022-08-18 13:45] LABS: URINE LEUK ESTERASE NEGATIVE (NEGATIVE); URINE NITRITE NEGATIVE (NEGATIVE)
[2022-08-18] MEDS ORDERED: ACETAMINOPHEN 1000 MG/100 ML BAG IVPB PRN (16:01)
[2022-08-18] MEDS ORDERED: ONDANSETRON 4 MG/2 ML VIAL IVPUSH PRN (16:01)
[2022-08-18] MEDS: SODIUM CHLORIDE 1,000 ML IV SCH (21:17)
[2022-08-19 05:00] VITALS: BMI 23.5
[2022-08-19] MEDS: SODIUM CHLORIDE 1,000 ML IV SCH (05:54)
[2022-08-19] MEDS ORDERED: methaDONE HCL 40 MG DISPERSABLE TABLET PO SCH ×2 (06:00→10:00)
[2022-08-19] MEDS ORDERED: DOCUSATE SODIUM 100 MG CAPSULE (FP) PO PRN (08:29)
[2022-08-19] MEDS ORDERED: methaDONE HCL 40 MG DISPERSABLE TABLET PO ONE (09:00)
[2022-08-19] MEDS ORDERED: methaDONE HCL 10 MG TABLET PO ONE (09:00)
[2022-08-19 09:07] LABS: BASO % 0.4 % (0-2.0); EOS % 0.1 % (0-4.5); HEMATOCRIT 46.1 % (35.4-49); HEMOGLOBIN 14.6 GM/dL (11.7-16.9); MCH 28.4 pg (25.7-33.7); MCHC 31.7 g/dl (32.0-35.9); MEAN CELL VOLUME 89.5 fl (80-96); MEAN PLT VOLUME 8.5 fl (7.5-11.1); MONO % 11.3 % (3.8-10.2); NEUT % 76.2 % (42.8-82.8); PLATELET COUNT 196 10^3/uL (134-434); RBC 5.15 M/mm3 (4.00-5.60); RDW 13.7 % (11.9-15.9); WHITE BLOOD COUNT 9.1 K/mm3 (4.0-10.0)
[2022-08-19 09:34] LABS: CALCIUM 9.2 mg/dL (8.5-10.1)
[2022-08-19 09:36] LABS: ALBUMIN 3.3 g/dl (3.4-5.0); BLOOD UREA NITROGEN 16.1 mg/dL (7-18)
[2022-08-19 09:38] LABS: CREATININE 0.8 mg/dL (0.55-1.3)
[2022-08-19 09:39] LABS: BILIRUBIN,TOTAL 0.9 mg/dL (0.2-1); TOT PROT 7.3 g/dl (6.4-8.2)
[2022-08-19] MEDS: ENOXAPARIN NA (PORCINE) 40 MG/0.4 ML DISP.SYRIN SQ SCH (09:44)
[2022-08-19] MEDS: LACTATED RINGERS SOLUTION 1,000 ML/1,000 ML INFUS.BAG IV SCH (14:41)
[2022-08-19] MEDS: CARBAMIDE PEROXIDE 6.5% OTIC 15 ML BOTTLE AU SCH (21:08)
[2022-08-20] MEDS ORDERED: methaDONE HCL 10 MG TABLET PO SCH (06:00)
[2022-08-20] MEDS: methaDONE 80 MG, methaDONE 20 MG PO SCH (06:31)
[2022-08-20] MEDS ORDERED: methaDONE HCL 10 MG TABLET (FOR DETOX USE ONLY) PO SCH (09:00)
[2022-08-20] MEDS: ENOXAPARIN NA (PORCINE) 40 MG/0.4 ML DISP.SYRIN SQ SCH (10:43)
[2022-08-20] MEDS: CARBAMIDE PEROXIDE 6.5% OTIC 15 ML BOTTLE AU SCH ×2 (10:44→22:10)
[2022-08-20] MEDS: LACTATED RINGERS SOLUTION 1,000 ML/1,000 ML INFUS.BAG IV SCH (22:10)
[2022-08-21 02:45] VITALS: RESP 20
[2022-08-21] MEDS: methaDONE 80 MG, methaDONE 20 MG PO SCH (06:57)
[2022-08-21] MEDS: ENOXAPARIN NA (PORCINE) 40 MG/0.4 ML DISP.SYRIN SQ SCH (10:37)
[2022-08-21] MEDS: CARBAMIDE PEROXIDE 6.5% OTIC 15 ML BOTTLE AU SCH (10:37)
[2022-08-21 12:29] LABS: CALCIUM 8.7 mg/dL (8.5-10.1)
[2022-08-21 12:30] LABS: ALBUMIN 3.1 g/dl (3.4-5.0); BLOOD UREA NITROGEN 19.4 mg/dL (7-18); MAGNESIUM 1.9 mg/dL (1.8-2.4)
[2022-08-21 12:34] LABS: BILIRUBIN,TOTAL 0.6 mg/dL (0.2-1)
[2022-08-21 12:35] LABS: TOT PROT 6.6 g/dl (6.4-8.2)
[2022-08-21 15:07] VITALS: BP 143/66; PULSE 69; TEMP 98.7
== END 2022-08-21 11:59 | disposition home or self-care (01) ==
LOC: JER 08:49 → JERBED 13:15 → J8W 08-19 05:26
PROVIDERS: ADMIT Internal Medicine; ATTEND Nurse Practitioner Acute Care
DX: K80.20 Calculus of gallbladder without cholecystitis without obstruction (principal); F11.20 Opioid dependence, uncomplicated; F17.210 Nicotine dependence, cigarettes, uncomplicated; F31.9 Bipolar disorder, unspecified; F32.A Depression, unspecified; K21.9 Gastro-esophageal reflux disease without esophagitis; R10.9 Unspecified abdominal pain; R19.7 Diarrhea, unspecified; R63.0 Anorexia; R74.8 Abnormal levels of other serum enzymes; K83.8 Other specified diseases of biliary tract
CPT/HCPCS: 36415; 71045-TC-FY; 74177-TC; 74181-TC; 80053; 81003; 83605; 83690; 83735; 84478; 84484; 85025; 87077; 87086; 93005; 93010; 99285-25; C9803-CS; Q9967; U0003; U0005

== ENCOUNTER 2022-12-21 20:27 | Inpatient (IN) | payer OTHER ==
[2022-12-21] MEDS ORDERED: MAG HYDROX/AL HYDROX/SIMETH 30 ML UNIT-DOSE CUP PO ONE (21:13)
[2022-12-21] MEDS ORDERED: ACETAMINOPHEN 1000 MG/100 ML BAG IVPB ONE (21:13)
[2022-12-21] MEDS ORDERED: SODIUM CHLORIDE 1,000 ML IV STA (21:13)
[2022-12-21] MEDS ORDERED: FAMOTIDINE 20 MG/50 ML IVPB 20 MG/50 ML MG IVPB ONE ×2 (21:13→21:24)
[2022-12-21] MEDS ORDERED: ACETAMINOPHEN INJECTION 100 ML IVPB ONE (21:24)
[2022-12-21] MEDS ORDERED: MAG HYDROX/AL HYDROX/SIMETH 30 ML UNIT-DOSE CUP ONE (21:24)
[2022-12-21] MEDS ORDERED: morphine CARPU-JECT 4 MG/1 ML DISP.SYRIN IVPUSH ONE (21:26)
[2022-12-21] MEDS ORDERED: morphine SULFATE 4 MG/ML VIAL ONE (21:32)
[2022-12-21 21:48] LABS: BASO % 0.4 % (0-2.0); EOS % 0.1 % (0-4.5); HEMATOCRIT 50.6 % (35.4-49); HEMOGLOBIN 16.6 GM/dL (11.7-16.9); LYMPH % 8.2 % (8-40); MCH 28.8 pg (25.7-33.7); MCHC 32.9 g/dl (32.0-35.9); MEAN CELL VOLUME 87.5 fl (80-96); MEAN PLT VOLUME 8.8 fl (7.5-11.1); MONO % 9.4 % (3.8-10.2); NEUT % 81.9 % (42.8-82.8); PLATELET COUNT 208 10^3/uL (134-434); RBC 5.79 M/mm3 (4.00-5.60); RDW 14.1 % (11.9-15.9); WHITE BLOOD COUNT 12.1 K/mm3 (4.0-10.0)
[2022-12-21 21:56] LABS: INR 1.14 (0.83-1.09); PROTHROMBIN TIME (PATIENT) 13.2 SEC (9.7-13.0)
[2022-12-21 21:59] LABS: ACTIVATED PTT 29.4 SECONDS (25.2-36.5)
[2022-12-21 22:12] LABS: CALCIUM 9.3 mg/dL (8.5-10.1)
[2022-12-21 22:13] LABS: ALBUMIN 3.7 g/dl (3.4-5.0); BLOOD UREA NITROGEN 19.5 mg/dL (7-18)
[2022-12-21 22:16] LABS: CREATININE 1.1 mg/dL (0.55-1.3)
[2022-12-21 22:17] LABS: BILIRUBIN,TOTAL 0.7 mg/dL (0.2-1); TOT PROT 8.5 g/dl (6.4-8.2)
[2022-12-21] MEDS ORDERED: ASPIRIN 81 MG CHEWABLE TABLETS PO ONE (22:39)
[2022-12-21] MEDS ORDERED: NITROGLYCERIN SUBLINGUAL 1/150 0.4 MG TAB SL ONE (22:40)
[2022-12-21] MEDS ORDERED: NITROGLYCERIN SUBLINGUAL 1/150 0.4 MG TAB ONE (22:55)
[2022-12-21] MEDS ORDERED: ASPIRIN 81 MG CHEWABLE TABLETS ONE (22:56)
[2022-12-21] MEDS ORDERED: HEPARIN NA (PORCINE) 5,000 UNITS/ML 1ML VIAL IVPUSH ONE (23:02)
[2022-12-21] MEDS ORDERED: CLOPIDOGREL BISULFATE 300 MG TABLET PO ONE (23:02)
[2022-12-21] MEDS ORDERED: CLOPIDOGREL BISULFATE 300 MG TABLET ONE (23:04)
[2022-12-21] MEDS ORDERED: HEPARIN INFUSION - 25,000 UNITS/500 ML INFUS.BAG IVPB SCH (23:15)
[2022-12-22] MEDS ORDERED: methaDONE HCL 40 MG DISPERSABLE TABLET ONE (06:33)
[2022-12-22] MEDS ORDERED: methaDONE 80 MG, methaDONE 20 MG PO ONE (06:45)
[2022-12-22] MEDS ORDERED: DEXTROSE 5%-NORMAL SALINE 1,000 ML IV SCH (07:30)
[2022-12-22] MEDS ORDERED: LABETALOL HCL 20 MG/4 ML VIAL ONE (08:34)
[2022-12-22] MEDS ORDERED: LABETALOL HCL 20 MG/4 ML VIAL IVPUSH ONE (09:00)
[2022-12-22] MEDS: PANTOPRAZOLE 40 MG TABLET PO SCH ×2 (10:22→21:11)
[2022-12-22] MEDS: DEXTROSE 5%-0.45% SALINE 1,000 ML IV SCH (11:51)
[2022-12-22] MEDS: LABETALOL HCL 100 MG TABLET (FP) PO SCH ×2 (13:26→21:10)
[2022-12-22 15:13] LABS: EPI CELLS 10 /uL (0-25.1); HYALINE CASTS 0 /uL (0-3.1); PH,URINE 5.5 (5.0-8.0); URINE APPEARANCE CLEAR; URINE BACTERIA 57 /uL (0-1359); URINE BILIRUBIN NEGATIVE (NEGATIVE); URINE COLOR ORANGE; URINE GLUCOSE (UA) NEGATIVE (NEGATIVE); URINE KETONE NEGATIVE (NEGATIVE); URINE LEUK ESTERASE NEGATIVE (NEGATIVE); URINE NITRITE NEGATIVE (NEGATIVE); URINE PROTEIN 1+ (NEGATIVE); URINE RBC 14 /uL (0-23.9); URINE UROBILINOGEN 0.2 mg/dL (0.2-1.0); URINE WBC 16 /uL (0-25.8)
[2022-12-22 16:54] LABS: BASO % 0.4 % (0-2.0); EOS % 0.4 % (0-4.5); HEMATOCRIT 46.1 % (35.4-49); HEMOGLOBIN 15.3 GM/dL (11.7-16.9); LYMPH % 18.3 % (8-40); MCH 29.2 pg (25.7-33.7); MCHC 33.1 g/dl (32.0-35.9); MEAN CELL VOLUME 88.3 fl (80-96); MEAN PLT VOLUME 7.8 fl (7.5-11.1); MONO % 13.7 % (3.8-10.2); NEUT % 67.2 % (42.8-82.8); PLATELET COUNT 180 10^3/uL (134-434); RBC 5.23 M/mm3 (4.00-5.60); RDW 13.9 % (11.9-15.9); WHITE BLOOD COUNT 7.9 K/mm3 (4.0-10.0)
[2022-12-22 17:21] LABS: CALCIUM 8.8 mg/dL (8.5-10.1); MAGNESIUM 2.2 mg/dL (1.8-2.4)
[2022-12-22 17:22] LABS: ALBUMIN 3.3 g/dl (3.4-5.0); BLOOD UREA NITROGEN 24.1 mg/dL (7-18)
[2022-12-22 17:25] LABS: CREATININE 1.2 mg/dL (0.55-1.3); PHOSPHOROUS 3.6 mg/dL (2.5-4.9)
[2022-12-22 17:26] LABS: TOT PROT 7.3 g/dl (6.4-8.2)
[2022-12-22 17:27] LABS: BILIRUBIN,TOTAL 0.7 mg/dL (0.2-1)
[2022-12-23] MEDS ORDERED: methaDONE HCL 10 MG TABLET PO ONE (06:00)
[2022-12-23] MEDS: LABETALOL HCL 100 MG TABLET (FP) PO SCH ×3 (06:11→22:33)
[2022-12-23] MEDS ORDERED: methaDONE 80 MG, methaDONE 20 MG PO ONE (08:00)
[2022-12-23 08:02] LABS: BASO % 0.5 % (0-2.0); EOS % 0.9 % (0-4.5); HEMATOCRIT 44.1 % (35.4-49); HEMOGLOBIN 14.5 GM/dL (11.7-16.9); LYMPH % 23.9 % (8-40); MCH 28.9 pg (25.7-33.7); MCHC 32.8 g/dl (32.0-35.9); MEAN CELL VOLUME 88.2 fl (80-96); MEAN PLT VOLUME 8.4 fl (7.5-11.1); MONO % 15.7 % (3.8-10.2); PLATELET COUNT 171 10^3/uL (134-434); RDW 13.7 % (11.9-15.9); WHITE BLOOD COUNT 5.8 K/mm3 (4.0-10.0)
[2022-12-23 08:34] LABS: CALCIUM 8.9 mg/dL (8.5-10.1)
[2022-12-23 08:35] LABS: ALBUMIN 3.1 g/dl (3.4-5.0); BLOOD UREA NITROGEN 26.2 mg/dL (7-18); MAGNESIUM 2.2 mg/dL (1.8-2.4)
[2022-12-23 08:38] LABS: BILIRUBIN,TOTAL 0.8 mg/dL (0.2-1); PHOSPHOROUS 3.6 mg/dL (2.5-4.9)
[2022-12-23 08:39] LABS: TOT PROT 6.9 g/dl (6.4-8.2)
[2022-12-23] MEDS: PANTOPRAZOLE 40 MG TABLET PO SCH ×2 (10:42→22:33)
[2022-12-23] MEDS: DEXTROSE 5%-0.45% SALINE 1,000 ML IV SCH (10:43)
[2022-12-23] MEDS: NICOTINE 21 MG/24 HOURS TOPICAL PATCH TD SCH (13:19)
[2022-12-23 21:00] VITALS: BMI 22.6
[2022-12-24] MEDS: LABETALOL HCL 100 MG TABLET (FP) PO SCH ×3 (05:10→21:42)
[2022-12-24] MEDS ORDERED: TETRACAINE/BENZOCAINE/BUTAMBEN 20 GM SPR TP ONE (10:13)
[2022-12-24] MEDS: PANTOPRAZOLE 40 MG TABLET PO SCH ×3 (10:50→21:42)
[2022-12-24] MEDS: NICOTINE 21 MG/24 HOURS TOPICAL PATCH TD SCH ×2 (10:50→11:00)
[2022-12-24] MEDS ORDERED: methaDONE HCL 10 MG TABLET (FOR DETOX USE ONLY) PO SCH (11:30)
[2022-12-24] MEDS: methaDONE HCL 10 MG TABLET PO SCH ×2 (11:52→11:53)
[2022-12-24] MEDS: DEXTROSE 5%-0.45% SALINE 1,000 ML IV SCH (11:59)
[2022-12-24] MEDS: methaDONE 80 MG, methaDONE 20 MG PO SCH (12:05)
[2022-12-24] MEDS: ASPIRIN 81 MG CHEWABLE TABLETS PO SCH (17:31)
[2022-12-25] MEDS: methaDONE 80 MG, methaDONE 20 MG PO SCH (05:58)
[2022-12-25] MEDS: LABETALOL HCL 100 MG TABLET (FP) PO SCH ×3 (06:00→21:01)
[2022-12-25] MEDS ORDERED: DEXTROSE 5%-0.45% SALINE 1,000 ML IV SCH (09:31)
[2022-12-25] MEDS ORDERED: REGADENOSON 0.4 MG/5 ML PRE-FILLED SYRINGE IVPUSH ONE ×2 (10:45→13:33)
[2022-12-25] MEDS: ASPIRIN 81 MG CHEWABLE TABLETS PO SCH (11:12)
[2022-12-25] MEDS: NICOTINE 21 MG/24 HOURS TOPICAL PATCH TD SCH (11:13)
[2022-12-25] MEDS: PANTOPRAZOLE 40 MG TABLET PO SCH ×2 (11:13→21:01)
[2022-12-26] MEDS ORDERED: methaDONE 80 MG, methaDONE 20 MG PO SCH (06:00)
[2022-12-26] MEDS: ASPIRIN 81 MG CHEWABLE TABLETS PO SCH (09:16)
[2022-12-26] MEDS: PANTOPRAZOLE 40 MG TABLET PO SCH (09:16)
[2022-12-26] MEDS: LABETALOL HCL 100 MG TABLET (FP) PO SCH (09:16)
[2022-12-26] MEDS: NICOTINE 21 MG/24 HOURS TOPICAL PATCH TD SCH (09:25)
[2022-12-26] MEDS ORDERED: POLYETHYLENE GLYCOL (HEALTHYLAX) 3350 17 GM PACKET PO SCH (10:00)
[2022-12-26 11:31] VITALS: BP 147/66; PULSE 66; RESP 24; TEMP 98.4
== END 2022-12-26 13:53 | disposition home or self-care (01) ==
LOC: JER 20:27 → JERBED 12-22 01:31 → INTOOBSV 12-22 01:31 → UNDOADMOB 12-22 01:31 → J4W 12-22 09:35 → JERBED 12-22 09:35 → J4W 12-24 12:45 → OBSVTOIN 12-25 09:46
PROVIDERS: ADMIT Internal Medicine
DX: K80.20 Calculus of gallbladder without cholecystitis without obstruction (principal); R91.1 Solitary pulmonary nodule; I21.4 Non-ST elevation (NSTEMI) myocardial infarction; F11.20 Opioid dependence, uncomplicated; F10.20 Alcohol dependence, uncomplicated; K29.60 Other gastritis without bleeding; D72.829 Elevated white blood cell count, unspecified; F32.A Depression, unspecified; E78.5 Hyperlipidemia, unspecified; F17.210 Nicotine dependence, cigarettes, uncomplicated; R63.4 Abnormal weight loss; Z68.22 Body mass index [BMI] 22.0-22.9, adult
CPT/HCPCS: 0241U-QW; 36415; 71275-TC; 74174-TC; 74183-TC; 76705-TC; 78452-TC; 80053; 81003; 83036; 83605; 83690; 83735; 84100; 84484; 85025; 85610; 85730; 86850; 86900; 86901; 87086; 93005; 93010; 93017; 93306-TC; 99285-25; A9502; A9579; G0378; J2785; Q9967

== ENCOUNTER 2023-04-20 18:09 | Observation (INO) | payer OTHER ==
[2023-04-20 18:36] VITALS: BMI 23.1
[2023-04-20 19:01] LABS: INR 0.97 (0.83-1.09); PROTHROMBIN TIME (PATIENT) 11.2 SEC (9.7-13.0)
[2023-04-20 19:02] LABS: BASO % 0.5 % (0-2.0); EOS % 3.4 % (0-4.5); HEMATOCRIT 35.9 % (35.4-49); HEMOGLOBIN 11.9 GM/dL (11.7-16.9); LYMPH % 30.2 % (8-40); MCH 29.3 pg (25.7-33.7); MCHC 33.1 g/dl (32.0-35.9); MEAN CELL VOLUME 88.6 fl (80-96); MEAN PLT VOLUME 8.1 fl (7.5-11.1); MONO % 16.9 % (3.8-10.2); PLATELET COUNT 163 10^3/uL (134-434); RBC 4.05 M/mm3 (4.00-5.60); RDW 13.4 % (11.9-15.9); WHITE BLOOD COUNT 4.4 K/mm3 (4.0-10.0)
[2023-04-20 19:04] LABS: ACTIVATED PTT 29.3 SECONDS (25.2-36.5)
[2023-04-20 19:32] VITALS: BP 131/77; PULSE 61; RESP 17; TEMP 98.3
[2023-04-20 19:53] LABS: POTASSIUM 4.7 mmol/L (3.5-5.1)
[2023-04-20] MEDS ORDERED: ASPIRIN 81 MG CHEWABLE TABLETS PO ONE (19:53)
[2023-04-20] MEDS ORDERED: ATORVASTATIN CA 80 MG TABLET (FP) PO ONE (19:54)
[2023-04-20 19:55] LABS: CALCIUM 8.9 mg/dL (8.5-10.1)
[2023-04-20 19:56] LABS: ALBUMIN 3.5 g/dl (3.4-5.0)
[2023-04-20 19:57] LABS: BLOOD UREA NITROGEN 20.8 mg/dL (7-18)
[2023-04-20 19:59] LABS: CREATININE 1.1 mg/dL (0.55-1.3)
[2023-04-20 20:00] LABS: TOT PROT 7.1 g/dl (6.4-8.2)
[2023-04-20] MEDS ORDERED: ATORVASTATIN CA 80 MG TABLET (FP) ONE (20:00)
[2023-04-20] MEDS ORDERED: ASPIRIN 81 MG CHEWABLE TABLETS ONE (20:01)
[2023-04-20 20:02] LABS: BILIRUBIN,TOTAL 0.3 mg/dL (0.2-1)
[2023-04-20 22:13] LABS: EPI CELLS 9 /uL (0-25.1); HYALINE CASTS 0 /uL (0-3.1); PH,URINE 6.5 (5.0-8.0); URINE APPEARANCE Error; URINE BACTERIA 122 /uL (0-1359); URINE BILIRUBIN NEGATIVE (NEGATIVE); URINE COLOR YELLOW; URINE GLUCOSE (UA) NEGATIVE (NEGATIVE); URINE KETONE TRACE (NEGATIVE); URINE LEUK ESTERASE TRACE (NEGATIVE); URINE NITRITE NEGATIVE (NEGATIVE); URINE PROTEIN NEGATIVE (NEGATIVE); URINE RBC 8 /uL (0-23.9); URINE UROBILINOGEN 0.2 mg/dL (0.2-1.0); URINE WBC 12 /uL (0-25.8)
[2023-04-20 22:30] LABS: PHENCYCLIDINE,URINE NEGATIVE (NEGATIVE)
[2023-04-20 22:31] LABS: COCAINE, UR NEGATIVE (NEGATIVE); URINE AMPHETAMINES NEGATIVE (NEGATIVE)
[2023-04-20 22:41] LABS: METHADONE, UR POSITIVE (NEGATIVE); OPIATES, URI POSITIVE (NEGATIVE); URINE BARBITURATES NEGATIVE (NEGATIVE); URINE BENZODIAZEPINES NEGATIVE (NEGATIVE)
[2023-04-21] MEDS ORDERED: THIAMINE HCL 100 MG TABLET (FP) PO SCH (10:00)
[2023-04-21] MEDS ORDERED: FOLIC ACID 1 MG TABLET (FP) PO SCH (10:00)
[2023-04-21] MEDS ORDERED: ENOXAPARIN NA (PORCINE) 40 MG/0.4 ML DISP.SYRIN SQ SCH (10:00)
[2023-04-21] MEDS ORDERED: ASPIRIN 81 MG CHEWABLE TABLETS PO SCH (10:00)
[2023-04-21] MEDS ORDERED: ATORVASTATIN CA 80 MG TABLET (FP) PO SCH (22:00)
== END 2023-04-21 01:15 | disposition left against medical advice (07) ==
LOC: JER 18:09 → JERBED 21:03
PROVIDERS: ADMIT Internal Medicine; ATTEND Internal Medicine
PROC: HZ31ZZZ Individual Counseling for Substance Abuse Treatment, Behavioral (ICD-10-PCS; principal; 2023-04-20)
DX: R20.0 Anesthesia of skin (principal); F19.10 Other psychoactive substance abuse, uncomplicated; I10 Essential (primary) hypertension; E78.5 Hyperlipidemia, unspecified; Z86.19 Personal history of other infectious and parasitic diseases; Z86.73 Personal history of transient ischemic attack (TIA), and cerebral infarction without residual deficits; F17.210 Nicotine dependence, cigarettes, uncomplicated
CPT/HCPCS: 36415; 70450-TC; 71045-TC-FY; 80053; 80061; 80307; 81003; 82550; 82553; 83036; 83735; 84100; 84439; 84443; 84484; 85025; 85610; 85730; 86850; 86900; 86901; 93005; 93010; 93880-TC; 99285-25; G0378

== ENCOUNTER 2024-02-14 22:59 | Observation (INO) | payer OTHER ==
[2024-02-15 00:35] LABS: BASO % 0.2 % (0-2.0); EOS % 0.1 % (0-4.5); HEMATOCRIT 48.4 % (35.4-49); HEMOGLOBIN 15.5 GM/dL (11.7-16.9); LYMPH % 6.6 % (8-40); MCH 28.3 pg (25.7-33.7); MCHC 32.1 g/dl (32.0-35.9); MEAN CELL VOLUME 88.1 fl (80-96); MEAN PLT VOLUME 8.3 fl (7.5-11.1); MONO % 6.8 % (3.8-10.2); NEUT % 86.3 % (42.8-82.8); PLATELET COUNT 197 10^3/uL (134-434); RBC 5.49 M/mm3 (4.00-5.60); RDW 13.7 % (11.9-15.9); WHITE BLOOD COUNT 12.9 K/mm3 (4.0-10.0)
[2024-02-15 00:46] LABS: POTASSIUM 3.8 mmol/L (3.5-5.1)
[2024-02-15 00:48] LABS: CALCIUM 9.3 mg/dL (8.5-10.1)
[2024-02-15 00:49] LABS: ALBUMIN 3.5 g/dl (3.4-5.0); BLOOD UREA NITROGEN 12.1 mg/dL (7-18)
[2024-02-15 00:53] LABS: BILIRUBIN,TOTAL 0.5 mg/dL (0.2-1); TOT PROT 8.3 g/dl (6.4-8.2)
[2024-02-15] MEDS ORDERED: HYDROmorphone HCl 2 MG/ML VIAL ONE (00:59)
[2024-02-15] MEDS ORDERED: MAG HYDROX/AL HYDROX/SIMETH 30 ML UNIT-DOSE CUP ONE (01:01)
[2024-02-15] MEDS ORDERED: FAMOTIDINE 20 MG/50 ML IVPB 20 MG/50 ML MG IVPB ONE (01:04)
[2024-02-15] MEDS ORDERED: KETOROLAC TROMETHAMINE 15 MG/ML VIAL ONE (01:04)
[2024-02-15] MEDS: FAMOTIDINE 20 MG/50 ML IVPB 20 MG/50 ML MG IVPB ONE (01:07)
[2024-02-15] MEDS: HYDROmorphone HCl 2 MG/ML VIAL IM ONE (01:08)
[2024-02-15] MEDS: MAG HYDROX/AL HYDROX/SIMETH 30 ML UNIT-DOSE CUP PO ONE (01:08)
[2024-02-15] MEDS: KETOROLAC TROMETHAMINE 15 MG/ML VIAL IVPUSH ONE (01:08)
[2024-02-15] MEDS ORDERED: ASPIRIN 81 MG CHEWABLE TABLETS ONE (02:38)
[2024-02-15] MEDS: ASPIRIN 81 MG CHEWABLE TABLETS PO ONE (02:50)
[2024-02-15] MEDS ORDERED: ACETAMINOPHEN INJECTION 100 ML IVPB ONE (06:43)
[2024-02-15] MEDS: PANTOPRAZOLE SODIUM 40 MG VIAL IVPUSH ONE (06:48)
[2024-02-15] MEDS: ACETAMINOPHEN 1000 MG/100 ML BAG IVPB ONE (06:48)
[2024-02-15] MEDS ORDERED: PIPERACILLIN/TAZOB 3.375 GM 3.375 GM/50 ML BAG IVPB ONE (07:31)
[2024-02-15] MEDS: PIPERACILLIN/TAZOB 3.375 GM 3.375 GM in DEXTROSE 5%-WATER - 50 ML IVPB ONE (07:38)
[2024-02-15] MEDS: SODIUM CHLORIDE 0.9% 500 ML INFUS.BAG IV ONE ×2 (08:48→12:56)
[2024-02-15] MEDS: DEXTROSE 5%-LACTATED RINGERS 1,000 ML IV SCH (13:14)
[2024-02-15] MEDS ORDERED: methaDONE HCL 40 MG DISPERSABLE TABLET ONE ×2 (18:43→20:57)
[2024-02-15] MEDS: methaDONE HCL 10 MG TABLET PO ONE (18:51)
[2024-02-15] MEDS: methaDONE 40 MG, methaDONE 10 MG PO ONE (20:30)
[2024-02-15] MEDS ORDERED: methaDONE HCL 10 MG TABLET ONE (20:57)
[2024-02-16 01:57] VITALS: BMI 27.4
[2024-02-16 09:52] LABS: BASO % 0.4 % (0-2.0); EOS % 0.4 % (0-4.5); HEMATOCRIT 41.4 % (35.4-49); HEMOGLOBIN 13.3 GM/dL (11.7-16.9); LYMPH % 27.4 % (8-40); MCH 28.4 pg (25.7-33.7); MCHC 32.2 g/dl (32.0-35.9); MEAN CELL VOLUME 88.1 fl (80-96); MEAN PLT VOLUME 8.3 fl (7.5-11.1); MONO % 14.6 % (3.8-10.2); NEUT % 57.2 % (42.8-82.8); PLATELET COUNT 181 10^3/uL (134-434); RDW 13.9 % (11.9-15.9); WHITE BLOOD COUNT 7.3 K/mm3 (4.0-10.0)
[2024-02-16 10:08] LABS: POTASSIUM 3.9 mmol/L (3.5-5.1)
[2024-02-16 10:13] LABS: CALCIUM 8.9 mg/dL (8.5-10.1)
[2024-02-16 10:14] LABS: BLOOD UREA NITROGEN 16.9 mg/dL (7-18)
[2024-02-16] MEDS: ASPIRIN COATED 81 MG TABLET.EC PO SCH (10:37)
[2024-02-16 11:53] VITALS: RESP 18
[2024-02-16] MEDS: methaDONE 40 MG, methaDONE 10 MG PO ONE (14:10)
[2024-02-16] MEDS: PANTOPRAZOLE 40 MG TABLET PO SCH (14:10)
[2024-02-16] MEDS: methaDONE HCL 10 MG TABLET (FOR DETOX USE ONLY) PO ONE (14:11)
[2024-02-16 15:46] LABS: PHENCYCLIDINE,URINE NEGATIVE (NEGATIVE)
[2024-02-16 15:48] LABS: COCAINE, UR NEGATIVE (NEGATIVE); URINE BARBITURATES NEGATIVE (NEGATIVE); URINE BENZODIAZEPINES NEGATIVE (NEGATIVE)
[2024-02-16 15:49] LABS: METHADONE, UR POSITIVE (NEGATIVE); OPIATES, URI POSITIVE (NEGATIVE); URINE AMPHETAMINES NEGATIVE (NEGATIVE)
[2024-02-16] MEDS: amLODIPine BESYLATE 5 MG TABLET (FP) PO SCH (18:12)
[2024-02-16] MEDS: ATORVASTATIN CA 40 MG TABLET (FP) PO SCH (21:45)
[2024-02-17] MEDS ORDERED: ACETAMINOPHEN INJECTION 100 ML IVPB ONE (02:20)
[2024-02-17] MEDS: ACETAMINOPHEN 1000 MG/100 ML BAG IVPB ONE (02:29)
[2024-02-17] MEDS: ACETAMINOPHEN 325 MG TABLET (FP) PO ONE (02:56)
[2024-02-17 06:29] VITALS: PULSE 46; TEMP 98.2
[2024-02-17 07:38] LABS: HEMATOCRIT 41.3 % (35.4-49); HEMOGLOBIN 13.1 GM/dL (11.7-16.9); MCH 28.2 pg (25.7-33.7); MCHC 31.7 g/dl (32.0-35.9); MEAN CELL VOLUME 88.9 fl (80-96); MEAN PLT VOLUME 8.5 fl (7.5-11.1); PLATELET COUNT 168 10^3/uL (134-434); RBC 4.65 M/mm3 (4.00-5.60); WHITE BLOOD COUNT 5.2 K/mm3 (4.0-10.0)
[2024-02-17 07:56] LABS: POTASSIUM 4.4 mmol/L (3.5-5.1)
[2024-02-17 08:00] LABS: BLOOD UREA NITROGEN 17.6 mg/dL (7-18); CALCIUM 8.6 mg/dL (8.5-10.1); MAGNESIUM 2.1 mg/dL (1.8-2.4)
[2024-02-17 08:03] LABS: CREATININE 1.2 mg/dL (0.55-1.3); PHOSPHOROUS 3.8 mg/dL (2.5-4.9)
[2024-02-17 08:11] LABS: N-TERMINAL BNP 288.6 pg/ml (5-125)
[2024-02-17 12:58] VITALS: BP 147/89
== END 2024-02-17 10:58 | disposition left against medical advice (07) ==
LOC: JER 22:59 → JERBED 02-15 06:46 → UNDOADMOB 02-15 06:46 → INTOOBSV 02-15 06:46 → JERBED 02-15 12:53 → J4W 02-15 22:03
PROVIDERS: ADMIT Internal Medicine; ATTEND Internal Medicine
PROC: 3E033NZ Introduction of Analgesics, Hypnotics, Sedatives into Peripheral Vein, Percutaneous Approach (ICD-10-PCS; principal; 2024-02-15)
PROC: 3E0337Z Introduction of Electrolytic and Water Balance Substance into Peripheral Vein, Percutaneous Approach (ICD-10-PCS; 2024-02-15)
PROC: 3E033GC Introduction of Other Therapeutic Substance into Peripheral Vein, Percutaneous Approach (ICD-10-PCS; 2024-02-15)
PROC: 3E023NZ Introduction of Analgesics, Hypnotics, Sedatives into Muscle, Percutaneous Approach (ICD-10-PCS; 2024-02-15)
PROC: 3E03329 Introduction of Other Anti-infective into Peripheral Vein, Percutaneous Approach (ICD-10-PCS; 2024-02-15)
DX: K80.20 Calculus of gallbladder without cholecystitis without obstruction (principal); Z79.891 Long term (current) use of opiate analgesic; F10.21 Alcohol dependence, in remission; F19.21 Other psychoactive substance dependence, in remission; E78.5 Hyperlipidemia, unspecified; Z86.19 Personal history of other infectious and parasitic diseases; I25.10 Atherosclerotic heart disease of native coronary artery without angina pectoris; I11.0 Hypertensive heart disease with heart failure
CPT/HCPCS: 0241U-QW; 36415; 71045-TC-FY; 71275-TC; 74174-TC; 76705-TC; 80048; 80053; 80061; 80307; 82550; 83036; 83605; 83690; 83735; 83880; 84100; 84439; 84443; 84484; 85025; 85027; 86850; 86900; 86901; 93005; 93010; 96361; 96365; 96367; 96372; 96375; 99285-25; G0378; J0131; Q9967

== ENCOUNTER 2025-04-21 17:37 | Emergency (ER) | payer OTHER ==
[2025-04-21 18:05] VITALS: RESP 20; BMI 21.8
[2025-04-21] MEDS ORDERED: ONDANSETRON *ODT* 4 MG TABLET ONE (18:32)
[2025-04-21] MEDS ORDERED: BUPRENORPHINE/NALOXONE 8 MG/2 MG FILM PACKET ONE ×2 (18:32→20:12)
[2025-04-21] MEDS: ONDANSETRON 4 MG TABLET PO ONE (18:38)
[2025-04-21] MEDS: BUPRENORPHINE/NALOXONE 4 MG/1 MG FILM PACKET SL ONE ×2 (18:38)
[2025-04-21 19:04] LABS: METHADONE, UR NEGATIVE (NEGATIVE); OPIATES, URI NEGATIVE (NEGATIVE)
[2025-04-21 19:05] LABS: PHENCYCLIDINE,URINE NEGATIVE (NEGATIVE)
[2025-04-21 19:08] LABS: COCAINE, UR POSITIVE (NEGATIVE); URINE AMPHETAMINES NEGATIVE (NEGATIVE); URINE BARBITURATES NEGATIVE (NEGATIVE); URINE BENZODIAZEPINES NEGATIVE (NEGATIVE)
[2025-04-21] MEDS: BUPRENORPHINE/NALOXONE 8 MG/2 MG FILM PACKET SL ONE (20:14)
[2025-04-21 20:26] VITALS: BP 144/81; PULSE 48; TEMP 98
== END 2025-04-21 23:29 | disposition home or self-care (01) ==
LOC: JER 17:37
DX: F11.93 Opioid use, unspecified with withdrawal (principal); R51.9 Headache, unspecified; R42 Dizziness and giddiness; R11.2 Nausea with vomiting, unspecified; R19.7 Diarrhea, unspecified; R07.9 Chest pain, unspecified; R68.83 Chills (without fever); M79.10 Myalgia, unspecified site; R45.1 Restlessness and agitation
CPT/HCPCS: 80307; 93005; 93010; 99284-25